=== PATIENT | female | born 1950 | race Caucasian/White ===

== ENCOUNTER 2016-04-21 12:25 | Inpatient (IN) | payer MEDICARE, OTHER ==
[~2016-04-21] VITALS: Ht 160 cm; Wt 54.3 kg
[2016-04-21 12:27] VITALS: BP 132/60; PULSE 56; RESP 17; TEMP 97.8; O2SAT 95
[2016-04-21 12:43] VITALS: BP 130/60; PULSE 56; RESP 24; O2SAT 97
[2016-04-21] MEDS ORDERED: SODIUM CHLOR 0.9% 1000 ML INJ 1,000 ML IV ONE ×2 (12:43→13:45)
[2016-04-21] MEDS ORDERED: SODIUM CHLORIDE 0.9% FLUSH 5 ML FLUSH IVF PRN (12:45)
[2016-04-21] MEDS ORDERED: ONDANSETRON HCL 4 MG/2 ML VIAL IVP ONE (12:45)
--- NOTE | 2016-04-21 12:49 | PD ---
HPI Chief Complaint: GI Complaint Time Seen by Provider: 12:45 Travel History International Travel<30 days: No Contact w/Intl Traveler<30days: No Traveled to known affect area: No History of Present Illness HPI Patient is a 65-year-old female presenting to emergency for evaluation of nausea , vomiting, diarrhea. Patient states her symptoms have been ongoing for the last 4 days. She reports a lower left abdominal pain that feels crampy. Patient reports that nothing tastes right, if she takes sips of water she starts to feel nauseated. She reports vomiting yellow emesis. Patient has had no documented fevers but reports chills and sweats. She denies any sick contacts. Her last colonoscopy was 2 years ago there were no abnormal findings per her report. PFSH Past Medical History Arthritis: Yes (rheumatoid) COPD: Yes Hypertension: Yes Psychiatric: Yes (PTSD) ?: Not Past Surgical History Hysterectomy: Yes Other Surgery: Yes (breast biopsy with titanium seeds one week ago.) Social History Alcohol Use: No Tobacco Use: Yes (electronic cigarettes) Substance Use: Yes (occasional marijuana) Allergies-Medications (Allergen,Severity, Reaction): Coded Allergies: Penicillin (Verified Allergy, Unknown, 04/21/16) Reported Meds & Prescriptions Reported Meds & Active Scripts Active Reported Tylenol Pm Extra Strength (Diphenhydramine-Acetaminophen) 25-500 Mg Tab 2 Tab PO HS Plaquenil (Hydroxychloroquine Sulfate) 200 Mg Tab 400 Mg PO DAILY Take with food Lisinopril 10 Mg Tab 10 Mg PO DAILY Mobic (Meloxicam) 15 Mg Tab 15 Mg PO DAILY Atenolol 50 Mg Tab 50 Mg PO HS Symbicort Inh (Budesonide/Formoterol Fumarate) 80-4.5 Mcg/Act Aero 2 Puff INH Q12HR Albuterol Neb (Albuterol Sulfate) 2.5 Mg/3 Ml Neb 2.5 Mg NEB Q4HR NEB PRN Claritin (Loratadine) 10 Mg Tab 10 Mg PO HS Xanax (Alprazolam) 0.5 Mg Tab 0.5 Mg PO BID PRN Melatonin 10 Mg Tab 10 Mg PO HS Review of Systems Except as stated in HPI: all other systems reviewed are Neg General / Constitutional: Positive: Chills, Other (sweats), No: Fever HENT: No: Headaches, Lightheadedness Cardiovascular: No: Chest Pain or Discomfort Respiratory: No: Cough, Shortness of Breath Gastrointestinal: Positive: Nausea, Vomiting, Diarrhea, Abdominal Pain Neurologic: Positive: Weakness, No: Dizziness, Syncope, Focal Abnormalities, Change in Mentation Physical Exam Narrative GENERAL: Well-developed, well-nourished, alert female. Resting comfortably in no acute distress. Friend at bedside. SKIN: Warm and dry. HEAD: Atraumatic. Normocephalic. EYES: Pupils equal and round. No scleral icterus. No injection or drainage. ENT: No nasal bleeding or discharge. Mucous membranes pink and moist. NECK: Trachea midline. No JVD. CARDIOVASCULAR: Regular rate and rhythm. No murmur appreciated. RESPIRATORY: No accessory muscle use. Clear to auscultation. Breath sounds equal bilaterally. GASTROINTESTINAL: Abdomen soft, tender to palpation left lower quadrant, nondistended. Hepatic and splenic margins not palpable. Positive bowel sounds, no rebound, no guarding. MUSCULOSKELETAL: No obvious deformities. No clubbing. No cyanosis. No edema. No CVAT bilaterally NEUROLOGICAL: Awake and alert. No obvious cranial nerve deficits. Motor grossly within normal limits. Normal speech. PSYCHIATRIC: Appropriate mood and affect; insight and judgment normal. Data Data Last Documented VS Vital Signs Date Time Temp Pulse Resp B/P Pulse Ox O2 Delivery O2 Flow Rate FiO2 04/21/16 15:09 62 24 143/62 98 Room Air 04/21/16 12:27 97.8 Orders Complete Blood Count With Diff (04/21/16 12:43) Comprehensive Metabolic Panel (04/21/16 12:43) Urinalysis - C+S If Indicated (04/21/16 12:43) Lipase (04/21/16 12:43) Iv Access Insert/Monitor (04/21/16 12:43) Ecg Monitoring (04/21/16 12:43) Oximetry (04/21/16 12:43) Ondansetron Inj (Zofran Inj) (04/21/16 12:45) Sodium Chlor 0.9% 1000 Ml Inj (Ns 1000 M (04/21/16 12:43) Sodium Chloride 0.9% Flush (Ns Flush) (04/21/16 12:45) Lactic Acid (04/21/16 12:43) Sodium Chlor 0.9% 1000 Ml Inj (Ns 1000 M (04/21/16 13:45) Ct Abd/Pel W/O Iv Contrast (04/21/16 ) Metronidazole 500 Mg Inj (Flagyl 500 Mg (04/21/16 15:00) Ciprofloxacin 400 Mg Premix (Cipro 400 M (04/21/16 15:00) Promethazine Inj (Phenergan Inj) (04/21/16 15:15) Alprazolam (Xanax) (04/21/16 15:30) Atenolol (Tenormin) (04/21/16 21:00) Budeson-Formot 80-4.5 Mcg Inh (Symbicort (04/21/16 21:00) Hydroxychloroquine (Plaquenil) (04/22/16 09:00) Admit Order (Ed Use Only) (04/21/16 15:20) Labs Laboratory Tests Test 04/21/16 12:55 White Blood Count 15.5 TH/MM3 Red Blood Count 4.21 MIL/MM3 Hemoglobin 12.4 GM/DL Hematocrit 36.5 % Mean Corpuscular Volume 86.9 FL Mean Corpuscular Hemoglobin 29.4 PG Mean Corpuscular Hemoglobin 33.9 % Concent Red Cell Distribution Width 13.6 % Platelet Count 248 TH/MM3 Mean Platelet Volume 9.9 FL Neutrophils (%) (Auto) 85.4 % Lymphocytes (%) (Auto) 6.8 % Monocytes (%) (Auto) 7.6 % Eosinophils (%) (Auto) 0.1 % Basophils (%) (Auto) 0.1 % Neutrophils # (Auto) 13.3 TH/MM3 Lymphocytes # (Auto) 1.1 TH/MM3 Monocytes # (Auto) 1.2 TH/MM3 Eosinophils # (Auto) 0.0 TH/MM3 Basophils # (Auto) 0.0 TH/MM3 CBC Comment DIFF FINAL Differential Comment Sodium Level 125 MEQ/L Potassium Level 4.5 MEQ/L Chloride Level 87 MEQ/L Carbon Dioxide Level 23.1 MEQ/L Anion Gap 15 MEQ/L Blood Urea Nitrogen 64 MG/DL Creatinine 2.60 MG/DL Estimat Glomerular Filtration 18 ML/MIN Rate Random Glucose 69 MG/DL Lactic Acid Level 1.3 mmol/L Calcium Level 8.2 MG/DL Total Bilirubin 0.4 MG/DL Aspartate Amino Transf 23 U/L (AST/SGOT) Alanine Aminotransferase 17 U/L (ALT/SGPT) Alkaline Phosphatase 67 U/L Total Protein 7.6 GM/DL Albumin 3.0 GM/DL Lipase 62 U/L MDM Medical Decision Making Medical Screen Exam Complete: Yes Emergency Medical Condition: Yes Interpretation(s) Last Impressions Abdomen/Pelvis CT 04/21/16 0000 Signed Impressions: Service Date/Time: Thursday, April 21, 2016 14:10 - CONCLUSION: Air-filled colon with ahaustral pattern and some scattered areas of colonic wall thickening likely colitis involving the distal descending and the distal transverse colons. There is low-grade inflammation around the colon and thickening of the paracolic peritoneal gutter. Diony Harp MD Laboratory Tests Test 04/21/16 12:55 White Blood Count 15.5 TH/MM3 Red Blood Count 4.21 MIL/MM3 Hemoglobin 12.4 GM/DL Hematocrit 36.5 % Mean Corpuscular Volume 86.9 FL Mean Corpuscular Hemoglobin 29.4 PG Mean Corpuscular Hemoglobin 33.9 % Concent Red Cell Distribution Width 13.6 % Platelet Count 248 TH/MM3 Mean Platelet Volume 9.9 FL Neutrophils (%) (Auto) 85.4 % Lymphocytes (%) (Auto) 6.8 % Monocytes (%) (Auto) 7.6 % Eosinophils (%) (Auto) 0.1 % Basophils (%) (Auto) 0.1 % Neutrophils # (Auto) 13.3 TH/MM3 Lymphocytes # (Auto) 1.1 TH/MM3 Monocytes # (Auto) 1.2 TH/MM3 Eosinophils # (Auto) 0.0 TH/MM3 Basophils # (Auto) 0.0 TH/MM3 CBC Comment DIFF FINAL Differential Comment Sodium Level 125 MEQ/L Potassium Level 4.5 MEQ/L Chloride Level 87 MEQ/L Carbon Dioxide Level 23.1 MEQ/L Anion Gap 15 MEQ/L Blood Urea Nitrogen 64 MG/DL Creatinine 2.60 MG/DL Estimat Glomerular Filtration 18 ML/MIN Rate Random Glucose 69 MG/DL Lactic Acid Level 1.3 mmol/L Calcium Level 8.2 MG/DL Total Bilirubin 0.4 MG/DL Aspartate Amino Transf 23 U/L (AST/SGOT) Alanine Aminotransferase 17 U/L (ALT/SGPT) Alkaline Phosphatase 67 U/L Total Protein 7.6 GM/DL Albumin 3.0 GM/DL Lipase 62 U/L Vital Signs Date Time Temp Pulse Resp B/P Pulse Ox O2 Delivery O2 Flow Rate FiO2 04/21/16 12:43 56 24 130/60 97 Room Air 04/21/16 12:27 97.8 56 17 132/60 95 Differential Diagnosis Diverticulitis versus colitis versus gastroenteritis versus obstruction versus viral syndrome versus other Narrative Course Patient is a 65-year-old female presenting to emergency department for evaluation abdominal pain, nausea, vomiting, diarrhea. She saw the Center stable, she is afebrile. Labs and imaging ordered and pending. Patient placed on telemetry monitoring, continuous pulse oximetry. IV access initiated. IV fluids and Zofran ordered. CT scan of the abdomen and pelvis shows colitis CBC with an elevated white count at 15.8 with left shift Chemistry with elevated BUN and creatinine, likely secondary to poor by mouth intake and vomiting. Sodium 125. Patient given 2 L of IV fluids Lipase is normal, lactic acid is normal [facility] paged for admission. Ciprofloxacin and metronidazole ordered. Dr. Curtis accepted admission. Admission orders placed. Patient is agreeable to plan. Diagnosis Primary Impression: Colitis Additional Impressions: Acute renal insufficiency Nausea & vomiting Qualified Code: R11.2 - Non-intractable vomiting with nausea, unspecified vomiting type Admitting Information Admitting Physician Requests: Admit Condition: Stable Lashae Hale Apr 21, 2016 12:49
[2016-04-21 13:19] LABS: AUTOMATED NEUTROPHIL # 13.3 TH/MM3 (1.8-7.7); BASOPHIL % 0.1 % (0.0-2.0); EOSINOPHIL % 0.1 % (0.0-4.0); HEMATOCRIT 36.5 % (35.0-46.0); HEMO FLAGS DIFF FINAL; LYMPH % 6.8 % (9.0-44.0); LYMPHOCYTE # 1.1 TH/MM3 (1.0-4.8); MEAN CELL VOLUME 86.9 FL (80.0-100.0); MEAN CORPUSCULAR HEMOGLOBIN 29.4 PG (27.0-34.0); MEAN CORPUSCULAR HGB CONC 33.9 % (32.0-36.0); MONO % 7.6 % (0.0-8.0); NEUT % 85.4 % (16.0-70.0); PLATELET COUNT 248 TH/MM3 (150-450); RED BLOOD COUNT 4.21 MIL/MM3 (4.00-5.30); RED CELL DISTRIBUTION WIDTH 13.6 % (11.6-17.2); WHITE BLOOD COUNT 15.5 TH/MM3 (4.0-11.0)
[2016-04-21 13:30] LABS: ANION GAP 15 MEQ/L (5-15); AST (GOT) 23 U/L (15-37); BICARBONATE 23.1 MEQ/L (21.0-32.0); BLOOD UREA NITROGEN 64 MG/DL (7-18); CHLORIDE 87 MEQ/L (98-107); GLOMERULAR FILTRATION RATE 18 ML/MIN (>89); POTASSIUM 4.5 MEQ/L (3.5-5.1); SODIUM (NA) 125 MEQ/L (136-145)
[2016-04-21 13:33] LABS: ALKALINE PHOSPHATASE 67 U/L (45-117); ALT (GPT) 17 U/L (10-53); TOTAL BILIRUBIN ADULT 0.4 MG/DL (0.2-1.0)
[2016-04-21] MEDS ORDERED: SYMB80AE INH (13:57)
[2016-04-21] MEDS ORDERED: ALPR.5 PO (13:57)
[2016-04-21] MEDS ORDERED: ALBU0.08 NEB (13:57)
[2016-04-21] MEDS ORDERED: DIPH1TAB36 PO (13:57)
[2016-04-21] MEDS ORDERED: PLAQ200T PO (13:57)
[2016-04-21] MEDS ORDERED: LISI10TA3 PO (13:57)
[2016-04-21] MEDS ORDERED: MOBI15TA PO (13:57)
[2016-04-21] MEDS ORDERED: ATEN50TA PO (13:57)
[2016-04-21] MEDS ORDERED: MELA1TAB27 PO (13:57)
[2016-04-21] MEDS ORDERED: LORA-361 PO (13:57)
--- NOTE | 2016-04-21 14:42 | RADRPT ---
EXAM DATE/TIME: 04/21/2016 14:10 [place] COMPARISON: No previous studies available for comparison. INDICATIONS : Nausea vomiting for one week,abdomen pain. ORAL CONTRAST: No oral contrast ingested. RADIATION DOSE: 9.96 CTDIvol (mGy) MEDICAL HISTORY : Hypertension. SURGICAL HISTORY : Hysterectomy. ENCOUNTER: Initial ACUITY: 1 week PAIN SCALE: 10/10 LOCATION: Abdomen TECHNIQUE: Volumetric scanning of the abdomen and pelvis was performed. Using automated exposure control and ad justment of the mA and/or kV according to patient size, radiation dose was kept as low as reasonably achievable to obtain optimal diagnostic quality images. FINDINGS: LOWER LUNGS: The visualized lower lungs are clear. LIVER: Homogeneous density without lesion. There is no dilation of the biliary tree. No calcified gallston es. Large calcification within the ruben hepatis could be a hepatic artery aneurysm measuring 9 mm of no clinical significance SPLEEN: Normal size without lesion. PANCREAS: Within normal limits. KIDNEYS: Normal in size and shape. There is no mass, stone, or hydronephrosis. ADRENAL GLANDS: Within normal limits. VASCULAR: There is no aortic aneurysm. BOWEL/MESENTERY: There are a number of areas and segments of colon which have a thick wall and a relatively ahaustral including the distal transverse and the descending colons concerning for colitis. Clip around the cec um may be related to appendectomy. ABDOMINAL WALL: Within normal limits. RETROPERITONEUM: There is no lymphadenopathy. BLADDER: No wall thickening or mass. REPRODUCTIVE: Within normal limits. INGUINAL: There is no lymphadenopathy or hernia. MUSCULOSKELETAL: Within normal limits for patient age. CONCLUSION: Air-filled colon with ahaustral pattern and some scattered areas of colonic wall thickening likely co litis involving the distal descending and the distal transverse colons. There is low-grade inflammat ion around the colon and thickening of the paracolic peritoneal gutter. Diony Harp MD on April 21, 2016 at 14:38 Board Certified Radiologist. This report was verified electronically.
[2016-04-21] MEDS ORDERED: metroNIDAZOLE 500 MG INJ 100 ML IV ONE (15:00)
[2016-04-21] MEDS ORDERED: CIPROFLOXACIN 400 MG PREMIX 200 ML IV ONE (15:00)
[2016-04-21 15:09] VITALS: BP 143/62; PULSE 62; RESP 24; O2SAT 98
[2016-04-21] MEDS ORDERED: PROMETHAZINE INJ 25 MG/ML VIAL IM ONE (15:15)
[2016-04-21 15:21] LABS: BACTERIA, URINE RARE /hpf; BLOOD, URINE SMALL (NEG); COMMENT (UR) CULT NOT INDICATED; CULTURE IF INDICATED CULT NOT INDICATED; GLUCOSE,URINE NEG (NEG); HYALINE CAST, URINE 1 /lpf (RARE); KETONE, URINE 10 mg/dL (NEG); NITRITE,URINE NEG (NEG); URINE COLOR YELLOW (YELLW/STRAW)
--- NOTE | 2016-04-21 15:27 | PD ---
Physical Exam Narrative GENERAL: Well-nourished, well-developed patient. HEAD: Normocephalic CARDIOVASCULAR: Regular rate and rhythm RESPIRATORY: no increased effort. No accessory muscle use. NEUROLOGICAL: Awake. Motor and sensory grossly within normal limits. Data Data Last Documented VS Vital Signs Date Time Temp Pulse Resp B/P Pulse Ox O2 Delivery O2 Flow Rate FiO2 04/21/16 15:09 62 24 143/62 98 Room Air 04/21/16 12:27 97.8 Orders Complete Blood Count With Diff (04/21/16 12:43) Comprehensive Metabolic Panel (04/21/16 12:43) Urinalysis - C+S If Indicated (04/21/16 12:43) Lipase (04/21/16 12:43) Iv Access Insert/Monitor (04/21/16 12:43) Ecg Monitoring (04/21/16 12:43) Oximetry (04/21/16 12:43) Ondansetron Inj (Zofran Inj) (04/21/16 12:45) Sodium Chlor 0.9% 1000 Ml Inj (Ns 1000 M (04/21/16 12:43) Sodium Chloride 0.9% Flush (Ns Flush) (04/21/16 12:45) Lactic Acid (04/21/16 12:43) Sodium Chlor 0.9% 1000 Ml Inj (Ns 1000 M (04/21/16 13:45) Ct Abd/Pel W/O Iv Contrast (04/21/16 ) Metronidazole 500 Mg Inj (Flagyl 500 Mg (04/21/16 15:00) Ciprofloxacin 400 Mg Premix (Cipro 400 M (04/21/16 15:00) Promethazine Inj (Phenergan Inj) (04/21/16 15:15) Alprazolam (Xanax) (04/21/16 15:30) Atenolol (Tenormin) (04/21/16 21:00) Budeson-Formot 80-4.5 Mcg Inh (Symbicort (04/21/16 21:00) Hydroxychloroquine (Plaquenil) (04/22/16 09:00) Admit Order (Ed Use Only) (04/21/16 15:20) Labs Laboratory Tests Test 04/21/16 04/21/16 12:55 15:05 White Blood Count 15.5 TH/MM3 Red Blood Count 4.21 MIL/MM3 Hemoglobin 12.4 GM/DL Hematocrit 36.5 % Mean Corpuscular Volume 86.9 FL Mean Corpuscular Hemoglobin 29.4 PG Mean Corpuscular Hemoglobin 33.9 % Concent Red Cell Distribution Width 13.6 % Platelet Count 248 TH/MM3 Mean Platelet Volume 9.9 FL Neutrophils (%) (Auto) 85.4 % Lymphocytes (%) (Auto) 6.8 % Monocytes (%) (Auto) 7.6 % Eosinophils (%) (Auto) 0.1 % Basophils (%) (Auto) 0.1 % Neutrophils # (Auto) 13.3 TH/MM3 Lymphocytes # (Auto) 1.1 TH/MM3 Monocytes # (Auto) 1.2 TH/MM3 Eosinophils # (Auto) 0.0 TH/MM3 Basophils # (Auto) 0.0 TH/MM3 CBC Comment DIFF FINAL Differential Comment Sodium Level 125 MEQ/L Potassium Level 4.5 MEQ/L Chloride Level 87 MEQ/L Carbon Dioxide Level 23.1 MEQ/L Anion Gap 15 MEQ/L Blood Urea Nitrogen 64 MG/DL Creatinine 2.60 MG/DL Estimat Glomerular Filtration 18 ML/MIN Rate Random Glucose 69 MG/DL Lactic Acid Level 1.3 mmol/L Calcium Level 8.2 MG/DL Total Bilirubin 0.4 MG/DL Aspartate Amino Transf 23 U/L (AST/SGOT) Alanine Aminotransferase 17 U/L (ALT/SGPT) Alkaline Phosphatase 67 U/L Total Protein 7.6 GM/DL Albumin 3.0 GM/DL Lipase 62 U/L Urine Color YELLOW Urine Turbidity CLEAR Urine pH 5.0 Urine Specific [place] 1.009 Urine Protein TRACE mg/dL Urine Glucose (UA) NEG mg/dL Urine Ketones 10 mg/dL Urine Occult Blood SMALL Urine Nitrite NEG Urine Bilirubin NEG Urine Urobilinogen LESS THAN 2.0 MG/DL Urine Leukocyte Esterase TRACE Urine RBC LESS THAN 1 /hpf Urine WBC 2 /hpf Urine Bacteria RARE /hpf Urine Hyaline Casts 1 /lpf Microscopic Urinalysis Comment CULT NOT INDICATED [facility] Supervised Visit with RITA: Yes Interpretation(s) CBC & BMP Diagram 04/21/16 12:55 Last 24 hours Impressions Abdomen/Pelvis CT 04/21/16 0000 Signed Impressions: Service Date/Time: Thursday, April 21, 2016 14:10 - CONCLUSION: Air-filled colon with ahaustral pattern and some scattered areas of colonic wall thickening likely colitis involving the distal descending and the distal transverse colons. There is low-grade inflammation around the colon and thickening of the paracolic peritoneal gutter. Diony Harp MD Narrative Course I, Dr. kamara, have reviewed the advance practice practitioner's documentation and am in agreement, met with the patient face to face, made the diagnosis, and the medical decision making was done by me. *My assessment and Findings: 65 y/o female presents with abdominal pain and vomiting and diarrhea. Workup shows acute renal failure and colitis. Will admit for IV fluid hydration and further care. Given Cipro and Flagyl Physician Communication Physician Communication [facility] agrees to admit Diagnosis Primary Impression: Colitis Additional Impressions: Nausea & vomiting Qualified Code: R11.2 - Non-intractable vomiting with nausea, unspecified vomiting type Acute renal insufficiency Hyponatremia Admitting Information Admitting Physician Requests: Admit Condition: Stable Angella Kamara MD Apr 21, 2016 15:27 Admitting Physician Requests: Admit Condition: Stable Angella Kamara MD Apr 21, 2016 15:27
[2016-04-21] MEDS ORDERED: ACETAMINOPHEN 325 MG TAB PO PRN (15:30)
[2016-04-21] MEDS ORDERED: ALPRAZolam 0.5 MG TAB PO PRN (15:30)
[2016-04-21] MEDS ORDERED: SODIUM CHLORIDE 0.9% FLUSH 5 ML FLUSH FLUSH PRN (15:30)
[2016-04-21] MEDS ORDERED: NALOXONE HCL 0.4 MG/ML AMP IV PRN (15:30)
[2016-04-21] MEDS ORDERED: DEXT 5%-NACL 0.9% 1000 ML INJ 1,000 ML IV SCH (16:00)
--- NOTE | 2016-04-21 16:02 | HHI.HP ---
HPI Service [facility] Non-Staff Admission Diagnosis colitis, acute renal insufficiency, nausea and vomiting Diagnoses: Chief Complaint: Nausea vomiting and diarrhea 4 days Travel History International Travel<30 Days: No Contact w/Intl Traveler <30 Da: No Traveled to Known Affected Are: No History of Present Illness This is a 65-year-old female patient with past medical history which includes osteoporosis, rheumatoid arthritis on Plaquenil, osteoarthritis, COPD, hypertension and recent breast biopsy. Patient presents to the emergency department today after she has had 5 days of intractable vomiting and diarrhea. Patient reports she has not been able to keep any food or liquids down for the past 4 days. Patient had a breast biopsy done last Wednesday with tumor markers placed. Patient reports the vomiting and diarrhea started simultaneously all of a sudden last . Patient reports there was a red tinge possible blood in the stool over the past few days. Patient reports the red tinge was not present in the stool today. Patient reports that she has left lower quadrant abdominal pain described as sharp and cramping in nature. Patient reports that attempting to eat or drink anything makes the vomiting worse feeling thing that is made the vomiting and diarrhea better is that she has not been eating and drinking. Patient reports that she has also been having diaphoresis with these symptoms. Patient denies shortness of breath chest pain. Review of Systems Except as stated in HPI: all other systems reviewed are Neg Past Family Social History Past Medical History osteoporosis, rheumatoid arthritis on Plaquel, osteoarthritis, COPD, hypertension and recent breast biopsy. Past Surgical History Bilateral breast biopsies, hysterectomy Reported Medications Tylenol Pm Extra Strength (Diphenhydramine-Acetaminophen) 25-500 Mg Tab 2 Tab PO HS Plaquenil (Hydroxychloroquine Sulfate) 200 Mg Tab 400 Mg PO DAILY Take with food Lisinopril 10 Mg Tab 10 Mg PO DAILY Mobic (Meloxicam) 15 Mg Tab 15 Mg PO DAILY Atenolol 50 Mg Tab 50 Mg PO HS Symbicort Inh (Budesonide/Formoterol Fumarate) 80-4.5 Mcg/Act Aero 2 Puff INH Q12HR Albuterol Neb (Albuterol Sulfate) 2.5 Mg/3 Ml Neb 2.5 Mg NEB Q4HR NEB PRN Claritin (Loratadine) 10 Mg Tab 10 Mg PO HS Xanax (Alprazolam) 0.5 Mg Tab 0.5 Mg PO BID PRN Melatonin 10 Mg Tab 10 Mg PO HS Allergies: Coded Allergies: Penicillin (Verified Allergy, Unknown, 04/21/16) Active Ordered Medications Current Medications Medications (Trade) Dose Ordered Sig/Tyrone Route Start Time Stop Time Status Last Admin IV Flush 2 ml 2 ml UNSCH PRN IVF 04/21/16 12:45 Metronidazole 100 ml @ 100 mls/hr ONCE ONCE IV 04/21/16 15:00 04/21/16 15:59 (Cipro 400 Mg Premix) 200 ml @ 200 mls/hr ONCE ONCE IV 04/21/16 15:00 04/21/16 15:59 04/21/16 15:19 (Xanax) 0.5 mg BID PRN PO 04/21/16 15:30 (Tenormin) 50 mg HS PO 04/21/16 21:00 (Symbicort 80-4.5 Mcg Inh) 2 puff Q12HR INH 04/21/16 21:00 (Plaquenil) 400 mg DAILY PO 04/22/16 09:00 Family History CAD runs in the family both mother and father Social History Patient reports she quit smoking cigarettes 4 years ago- now uses electronic cigarettes denies EtOH use Physical Exam Vital Signs Vital Signs Date Time Temp Pulse Resp B/P Pulse Ox O2 Delivery O2 Flow Rate FiO2 04/21/16 15:09 62 24 143/62 98 Room Air 04/21/16 12:43 56 24 130/60 97 Room Air 04/21/16 12:27 97.8 56 17 132/60 95 Physical Exam GENERAL: This is a 65-year-old female patient ill-appearing SKIN: Skin is pale and dry HEAD: Atraumatic. Normocephalic. No temporal or scalp tenderness. EYES: Extraocular motions intact. No scleral icterus. No injection or drainage. CARDIOVASCULAR: Regular rate and rhythm without murmurs, gallops, or rubs. RESPIRATORY: Clear to auscultation. Breath sounds equal bilaterally. No wheezes , rales, or rhonchi. GASTROINTESTINAL: Abdomen soft, nondistended, tender to palpation of left lower quadrant MUSCULOSKELETAL: Extremities without clubbing, cyanosis, or edema. No joint tenderness, effusion, or edema noted. No calf tenderness. Negative Homans sign bilaterally. NEUROLOGICAL: Awake and alert. No focal deficits appreciated Motor and sensory grossly within normal limits. 4 out of 5 muscle strength in all muscle groups. Normal speech. Laboratory Laboratory Tests Test 04/21/16 04/21/16 12:55 15:05 White Blood Count 15.5 Red Blood Count 4.21 Hemoglobin 12.4 Hematocrit 36.5 Mean Corpuscular Volume 86.9 Mean Corpuscular Hemoglobin 29.4 Mean Corpuscular Hemoglobin 33.9 Concent Red Cell Distribution Width 13.6 Platelet Count 248 Mean Platelet Volume 9.9 Neutrophils (%) (Auto) 85.4 Lymphocytes (%) (Auto) 6.8 Monocytes (%) (Auto) 7.6 Eosinophils (%) (Auto) 0.1 Basophils (%) (Auto) 0.1 Neutrophils # (Auto) 13.3 Lymphocytes # (Auto) 1.1 Monocytes # (Auto) 1.2 Eosinophils # (Auto) 0.0 Basophils # (Auto) 0.0 CBC Comment DIFF FINAL Differential Comment Sodium Level 125 Potassium Level 4.5 Chloride Level 87 Carbon Dioxide Level 23.1 Anion Gap 15 Blood Urea Nitrogen 64 Creatinine 2.60 Estimat Glomerular Filtration 18 Rate Random Glucose 69 Lactic Acid Level 1.3 Calcium Level 8.2 Total Bilirubin 0.4 Aspartate Amino Transf 23 (AST/SGOT) Alanine Aminotransferase 17 (ALT/SGPT) Alkaline Phosphatase 67 Total Protein 7.6 Albumin 3.0 Lipase 62 Urine Color YELLOW Urine Turbidity CLEAR Urine pH 5.0 Urine Specific [place] 1.009 Urine Protein TRACE Urine Glucose (UA) NEG Urine Ketones 10 Urine Occult Blood SMALL Urine Nitrite NEG Urine Bilirubin NEG Urine Urobilinogen LESS THAN 2.0 Urine Leukocyte Esterase TRACE Urine RBC LESS THAN 1 Urine WBC 2 Urine Bacteria RARE Urine Hyaline Casts 1 Microscopic Urinalysis Comment CULT NOT INDICATED Result Diagram: 04/21/16 1255 04/21/16 1255 Imaging Last Impressions Abdomen/Pelvis CT 04/21/16 0000 Signed Impressions: Service Date/Time: Thursday, April 21, 2016 14:10 - CONCLUSION: Air-filled colon with ahaustral pattern and some scattered areas of colonic wall thickening likely colitis involving the distal descending and the distal transverse colons. There is low-grade inflammation around the colon and thickening of the paracolic peritoneal gutter. Diony Harp MD Assessment and Plan Problem List: (1) Colitis ICD Code: K52.9 Status: Acute (2) Acute renal insufficiency ICD Code: N28.9 Status: Acute (3) Hyponatremia ICD Code: E87.1 Status: Acute (4) Nausea & vomiting ICD Code: R11.2 Status: Acute Assessment and Plan This is a 65-year-old female patient with past medical history which includes osteoporosis, rheumatoid arthritis on Plaquenil, osteoarthritis, COPD, hypertension and recent breast biopsy. Patient presents to the emergency department today after she has had 5 days of intractable vomiting and diarrhea. Patient reports she has not been able to keep any food or liquids down for the past 4 days. Patient had a breast biopsy done last Wednesday with tumor markers placed. Patient reports the vomiting and diarrhea started simultaneously all of a sudden last . Nausea vomiting diarrhea Leukocytosis 15.5 Colitis- bacterial versus viral. With history of rheumatoid arthritis concern for autoimmune colitis. Cipro IV decreased to 400 mg every 24 hours and Flagyl 500 mg every 8 hours IV in setting of renal disease Zofran as needed for nausea/vomiting Hemoccult stool Stool for C. difficile, ova/parasites and culture Clear liquid diet as tolerated GI consult requested. Acute kidney injury likely secondary to dehydration Hyponatremia Patient has received 2 L normal saline in emergency department will change to D5 normal saline at 75 cc/h Recheck BMP at 8 PM nurse to call if sodium level is above 130 Recheck BMP in a.m. Rheumatoid arthritis continue Plaquenil COPD chronic continue Symbicort DVT prophylaxis with SCDs Plan of care discussed with ER provider, nursing and patient Written by Carri Gutiérrez, acting as scribe for Dr. Navarrete on 04/21/16 at 15:59. Physician Certification 2 Midnight Certification Type: Admission for Inpatient Services Order for Inpatient Services The services are ordered in accordance with Medicare regulations or non- Medicare payer requirements, as applicable. In the case of services not specified as inpatient-only, they are appropriately provided as inpatient services in accordance with the 2-midnight benchmark. Estimated LOS (days): 4 days is the estimated time the patient will need to remain in the hospital, assuming treatment plan goals are met and no additional complications. Post-Hospital Plan: Home Notes: The documentation accurately reflects the work performed [id number] by me on at 15:59. Problem Qualifiers (1) Nausea & vomiting: Qualified Code: R11.2 - Non-intractable vomiting with nausea, unspecified vomiting type Carri Gutiérrez Apr 21, 2016 16:02 Hao Navarrete DO Apr 21, 2016 18:21
[2016-04-21] MEDS: ONDANSETRON HCL 4 MG/2 ML VIAL IVP PRN ×2 (16:13→19:58)
[2016-04-21 17:16] VITALS: BP 139/63; PULSE 59; RESP 16; O2SAT 96
[2016-04-21 18:13] VITALS: BP 137/62; PULSE 59; RESP 16; O2SAT 97
[2016-04-21 19:07] VITALS: BP 132/63; PULSE 56; RESP 18; O2SAT 96
[2016-04-21] MEDS: SODIUM CHLORIDE 0.9% FLUSH 5 ML FLUSH FLUSH SCH (20:27)
[2016-04-21] MEDS: BUDESONIDE-FORMOTEROL 80/4.5 MCG INHALER INH SCH (21:00)
[2016-04-21 21:20] LABS: BICARBONATE 21.9 MEQ/L (21.0-32.0)
[2016-04-21 21:35] LABS: POTASSIUM 4.6 MEQ/L (3.5-5.1)
[2016-04-21] MEDS: ATENOLOL 50 MG TAB PO SCH (21:42)
[2016-04-21 22:27] LABS: CALCIUM-PROTEIN CORRECTED 7.3 MG/DL (8.5-10.1)
[2016-04-21] MEDS ORDERED: CALCIUM GLUCONATE 10% 1 GM/10 ML VIAL IV PUSH ONE (23:00)
[2016-04-21] MEDS ORDERED: CALCIUM GLUCONATE INJ 1 GM in DEXTROSE 5% IN WATER 100ML INJ 100 ML IV ONE ×2 (23:30)
[2016-04-21] MEDS: metroNIDAZOLE 500 MG INJ 100 ML IV SCH (23:56)
[2016-04-21] MEDS: DEXT 5%-NACL 0.45% 1000 ML INJ 1,000 ML IV SCH (23:57)
[2016-04-22] VITALS: BP 137/68; PULSE 59; RESP 20; TEMP 97.2; O2SAT 96
[2016-04-22 05:41] LABS: AUTOMATED NEUTROPHIL # 5.7 TH/MM3 (1.8-7.7); BASOPHIL % 0.1 % (0.0-2.0); EOSINOPHIL % 0.1 % (0.0-4.0); HEMATOCRIT 28.5 % (35.0-46.0); HEMO FLAGS DIFF FINAL; LYMPH % 10.6 % (9.0-44.0); LYMPHOCYTE # 0.8 TH/MM3 (1.0-4.8); MEAN CORPUSCULAR HEMOGLOBIN 29.4 PG (27.0-34.0); MEAN CORPUSCULAR HGB CONC 33.8 % (32.0-36.0); MONO % 11.6 % (0.0-8.0); NEUT % 77.6 % (16.0-70.0); PLATELET COUNT 181 TH/MM3 (150-450); RED BLOOD COUNT 3.27 MIL/MM3 (4.00-5.30); RED CELL DISTRIBUTION WIDTH 13.5 % (11.6-17.2); WHITE BLOOD COUNT 7.3 TH/MM3 (4.0-11.0)
[2016-04-22 06:13] LABS: BICARBONATE 23.2 MEQ/L (21.0-32.0); POTASSIUM 3.7 MEQ/L (3.5-5.1)
[2016-04-22 08:00] VITALS: BP 161/69; PULSE 62; RESP 25; TEMP 97.4; O2SAT 93
[2016-04-22] MEDS: metroNIDAZOLE 500 MG INJ 100 ML IV SCH ×2 (08:58→16:25)
[2016-04-22] MEDS: HYDROXYCHLOROQUINE SULFATE 200 MG TAB PO SCH (08:59)
[2016-04-22] MEDS: BUDESONIDE-FORMOTEROL 80/4.5 MCG INHALER INH SCH ×2 (08:59→22:20)
[2016-04-22] MEDS: SODIUM CHLORIDE 0.9% FLUSH 5 ML FLUSH FLUSH SCH ×2 (08:59→21:00)
[2016-04-22] MEDS ORDERED: MORPHINE SULFATE 4 MG/ML INJ IV PUSH PRN (09:30)
--- NOTE | 2016-04-22 09:34 | HHI.PR ---
Subjective Remarks The patient said she was less nauseous. She said she was having a stabbing sensation in her left lower quadrant. She was wondering if she could have pain medication. She said she had some water and terrence stephen and was handling that okay. She said she would like to try some broth today. Has not had a bowel movement. Objective Vitals Vital Signs Date Time Temp Pulse Resp B/P Pulse Ox O2 Delivery O2 Flow Rate FiO2 04/22/16 00:00 97.2 59 20 137/68 96 04/21/16 19:07 56 18 132/63 96 Room Air 04/21/16 18:13 59 16 137/62 97 Room Air 04/21/16 17:16 59 16 139/63 96 Room Air 04/21/16 15:09 62 24 143/62 98 Room Air 04/21/16 12:43 56 24 130/60 97 Room Air 04/21/16 12:27 97.8 56 17 132/60 95 I/O 04/21/16 04/21/16 04/21/16 04/22/16 04/22/16 04/22/16 07:00 15:00 23:00 07:00 15:00 23:00 Intake Total 120 ml 745 ml Output Total 500 ml Balance -380 ml 745 ml Intake Oral 120 ml IV Total 745 ml Output Urine Total 500 ml Result Diagram: 04/22/16 0506 04/22/16 0506 Imaging Last Impressions Abdomen/Pelvis CT 04/21/16 0000 Signed Impressions: Service Date/Time: Thursday, April 21, 2016 14:10 - CONCLUSION: Air-filled colon with ahaustral pattern and some scattered areas of colonic wall thickening likely colitis involving the distal descending and the distal transverse colons. There is low-grade inflammation around the colon and thickening of the paracolic peritoneal gutter. Diony Harp MD Objective Remarks GENERAL: Resting comfortably. SKIN: Skin is pale and dry HEAD: Atraumatic. Normocephalic. No temporal or scalp tenderness. EYES: Extraocular motions intact. No scleral icterus. No injection or drainage. CARDIOVASCULAR: Regular rate and rhythm without murmurs, gallops, or rubs. RESPIRATORY: Clear to auscultation. Breath sounds equal bilaterally. No wheezes , rales, or rhonchi. GASTROINTESTINAL: Abdomen soft, nondistended, tender to palpation of left lower quadrant. MUSCULOSKELETAL: Extremities without clubbing, cyanosis, or edema. No joint tenderness, effusion, or edema noted. NEUROLOGICAL: Awake and alert. No focal deficits appreciated Motor and sensory grossly within normal limits. 5 out of 5 muscle strength in all muscle groups. Normal speech. PSYCH: Mood and affect appropriate. Medications and IVs Current Medications Medications (Trade) Dose Ordered Sig/Tyrone Route Start Time Stop Time Status Last Admin (Xanax) 0.5 mg BID PRN PO 04/21/16 15:30 (Tenormin) 50 mg HS PO 04/21/16 21:00 04/21/16 21:42 (Symbicort 80-4.5 Mcg Inh) 2 puff Q12HR INH 04/21/16 21:00 04/22/16 08:59 (Plaquenil) 400 mg DAILY PO 04/22/16 09:00 04/22/16 08:59 (NS Flush) 2 ml UNSCH PRN FLUSH 04/21/16 15:30 (NS Flush) 2 ml BID FLUSH 04/21/16 21:00 04/22/16 08:59 (Tylenol) 650 mg Q4H PRN PO 04/21/16 15:30 (Zofran Inj) 4 mg Q6H PRN IVP 04/21/16 15:30 04/21/16 19:58 Naloxone HCl 0.4 mg 0.4 mg UNSCH PRN IV 04/21/16 15:30 Metronidazole 100 ml @ 100 mls/hr Q8H IV 04/22/16 00:00 04/22/16 08:58 Dextrose/Sodium Chloride 1,000 ml @ 75 mls/hr [id number] IV 04/21/16 23:00 04/21/16 23:57 (Cipro 400 Mg Premix) 200 ml @ 200 mls/hr BID IV 04/22/16 09:10 A/P Problem List: (1) Colitis ICD Code: K52.9 Status: Acute (2) Acute renal insufficiency ICD Code: N28.9 Status: Acute (3) Hyponatremia ICD Code: E87.1 Status: Acute (4) Nausea & vomiting ICD Code: R11.2 Status: Acute Assessment and Plan This is a 65-year-old female patient with past medical history which includes osteoporosis, rheumatoid arthritis on Plaquenil, osteoarthritis, COPD, hypertension and recent breast biopsy. Patient presents to the emergency department today after she has had 5 days of intractable vomiting and diarrhea. Patient reports she has not been able to keep any food or liquids down for the past 4 days. Patient had a breast biopsy done last Wednesday with tumor markers placed. Patient reports the vomiting and diarrhea started simultaneously all of a sudden last . Nausea vomiting diarrhea/ Colitis Bacterial versus viral. With history of rheumatoid arthritis concern for autoimmune colitis. Leukocytosis resolved. - Cipro IV and Flagyl IV. - Zofran as needed for nausea/vomiting - Hemoccult stool. - Stool for C. difficile, ova/parasites and culture. - Clear liquid diet as tolerated. - GI consult requested. Acute kidney injury/ Hyponatremia Prerenal, improved with IVFs. - continue IVFs and follow BMP. Anemia Dilutional. - follow CBC. Rheumatoid arthritis Stable. - continue Plaquenil. COPD Stable. - continue Symbicort. DVT prophylaxis with SCDs Discharge Planning Awaiting clinical improvement. Problem Qualifiers (1) Nausea & vomiting: Qualified Code: R11.2 - Non-intractable vomiting with nausea, unspecified vomiting type Hao Navarrete DO Apr 22, 2016 09:34
[2016-04-22] MEDS: ONDANSETRON HCL 4 MG/2 ML VIAL IVP PRN ×2 (11:22→22:17)
[2016-04-22] MEDS: CIPROFLOXACIN 400 MG PREMIX 200 ML IV SCH ×2 (11:23→22:16)
[2016-04-22 12:00] VITALS: BP 133/68; PULSE 59; RESP 17; TEMP 97.6; O2SAT 96
[2016-04-22] MEDS: DEXT 5%-NACL 0.45% 1000 ML INJ 1,000 ML IV SCH (12:20)
[2016-04-22] MEDS ORDERED: CIPROFLOXACIN 400 MG PREMIX 200 ML IV SCH (15:00)
[2016-04-22 16:00] VITALS: BP 132/59; PULSE 59; RESP 16; TEMP 95.4; O2SAT 94
[2016-04-22] MEDS: ATENOLOL 50 MG TAB PO SCH (22:16)
[2016-04-23] VITALS: BP 134/58; PULSE 66; RESP 18; TEMP 97.6; O2SAT 94
[2016-04-23] MEDS: metroNIDAZOLE 500 MG INJ 100 ML IV SCH ×3 (00:20→15:46)
[2016-04-23] MEDS: DEXT 5%-NACL 0.45% 1000 ML INJ 1,000 ML IV SCH (00:20)
[2016-04-23 04:00] VITALS: BP 151/67; PULSE 60; RESP 17; TEMP 96.7; O2SAT 94
[2016-04-23] MEDS: ONDANSETRON HCL 4 MG/2 ML VIAL IVP PRN (04:52)
[2016-04-23 06:39] LABS: HEMATOCRIT 29.8 % (35.0-46.0); MEAN CELL VOLUME 87.9 FL (80.0-100.0); MEAN CORPUSCULAR HEMOGLOBIN 30.1 PG (27.0-34.0); MEAN CORPUSCULAR HGB CONC 34.3 % (32.0-36.0); PLATELET COUNT 186 TH/MM3 (150-450); RED CELL DISTRIBUTION WIDTH 13.8 % (11.6-17.2); REVIEW FLAG FINAL; WHITE BLOOD COUNT 6.3 TH/MM3 (4.0-11.0)
[2016-04-23 06:51] LABS: BICARBONATE 25.8 MEQ/L (21.0-32.0); MAGNESIUM 1.7 MG/DL (1.5-2.5); POTASSIUM 3.3 MEQ/L (3.5-5.1)
[2016-04-23 08:00] VITALS: BP 166/97; PULSE 52; RESP 20; TEMP 97.3; O2SAT 95
[2016-04-23] MEDS: SODIUM CHLORIDE 0.9% FLUSH 5 ML FLUSH FLUSH SCH ×2 (08:03→22:27)
[2016-04-23] MEDS: CIPROFLOXACIN 400 MG PREMIX 200 ML IV SCH (08:19)
[2016-04-23] MEDS: HYDROXYCHLOROQUINE SULFATE 200 MG TAB PO SCH (08:20)
[2016-04-23] MEDS: BUDESONIDE-FORMOTEROL 80/4.5 MCG INHALER INH SCH ×2 (08:20→22:27)
[2016-04-23] MEDS ORDERED: POTASSIUM CHLORIDE 25 MEQ EFFERVESCENT TAB PO ONE (09:00)
[2016-04-23 12:00] VITALS: BP 184/73; PULSE 62; RESP 20; TEMP 97.5; O2SAT 96
[2016-04-23 12:31] LABS: C. DIFF EPI 027 PRESUMPTIVE NEGATIVE (NEGATIVE); C. DIFF TOXIN PCR NEGATIVE (NEGATIVE)
[2016-04-23] MEDS ORDERED: POTASSIUM CHLORIDE 20 MEQ CONTROLLED RELEASE TAB PO ONE (13:00)
--- NOTE | 2016-04-23 13:11 | HHI.PR ---
Subjective Remarks The patient was resting comfortably in bed. Her family was at the bedside. She said she was tolerating her clear liquid diet. She wanted more regular food. She says her abdominal pain is improved. She did complain of a headache. She said she has a history of migraines. Discussed with nursing. Objective Vitals Vital Signs Date Time Temp Pulse Resp B/P Pulse Ox O2 Delivery O2 Flow Rate FiO2 04/23/16 08:00 97.3 52 20 166/97 95 04/23/16 04:00 96.7 60 17 151/67 94 04/23/16 00:00 97.6 66 18 134/58 94 04/22/16 16:00 95.4 59 16 132/59 94 I/O 04/22/16 04/22/16 04/22/16 04/23/16 04/23/16 04/23/16 07:00 15:00 23:00 07:00 15:00 23:00 Intake Total 120 ml 1675 ml 375 ml 1051 ml 120 ml Output Total 500 ml 900 ml Balance -380 ml 775 ml 375 ml 1051 ml 120 ml Intake Oral 120 ml 930 ml 480 ml 120 ml IV Total 745 ml 375 ml 571 ml Output Urine Total 500 ml 900 ml # Voids 1 # Bowel Movements 0 Result Diagram: 04/23/16 0442 04/23/16 0442 Imaging Last Impressions Abdomen/Pelvis CT 04/21/16 0000 Signed Impressions: Service Date/Time: Thursday, April 21, 2016 14:10 - CONCLUSION: Air-filled colon with ahaustral pattern and some scattered areas of colonic wall thickening likely colitis involving the distal descending and the distal transverse colons. There is low-grade inflammation around the colon and thickening of the paracolic peritoneal gutter. Diony Harp MD Objective Remarks GENERAL: Resting comfortably. SKIN: Skin is pale and dry HEAD: Atraumatic. Normocephalic. No temporal or scalp tenderness. EYES: Extraocular motions intact. No scleral icterus. No injection or drainage. CARDIOVASCULAR: Regular rate and rhythm without murmurs, gallops, or rubs. RESPIRATORY: Clear to auscultation. Breath sounds equal bilaterally. No wheezes , rales, or rhonchi. GASTROINTESTINAL: Abdomen soft, nondistended, mildly tender to palpation. MUSCULOSKELETAL: Extremities without clubbing, cyanosis, or edema. No joint tenderness, effusion, or edema noted. NEUROLOGICAL: Awake and alert. No focal deficits appreciated Motor and sensory grossly within normal limits. 5 out of 5 muscle strength in all muscle groups. Normal speech. PSYCH: Mood and affect appropriate. Medications and IVs Current Medications Medications (Trade) Dose Ordered Sig/Tyrone Route Start Time Stop Time Status Last Admin (Xanax) 0.5 mg BID PRN PO 04/21/16 15:30 (Tenormin) 50 mg HS PO 04/21/16 21:00 04/22/16 22:16 (Symbicort 80-4.5 Mcg Inh) 2 puff Q12HR INH 04/21/16 21:00 04/23/16 08:20 (Plaquenil) 400 mg DAILY PO 04/22/16 09:00 04/23/16 08:20 (NS Flush) 2 ml UNSCH PRN FLUSH 04/21/16 15:30 (NS Flush) 2 ml BID FLUSH 04/21/16 21:00 04/22/16 08:59 (Tylenol) 650 mg Q4H PRN PO 04/21/16 15:30 (Zofran Inj) 4 mg Q6H PRN IVP 04/21/16 15:30 04/23/16 04:52 Naloxone HCl 0.4 mg 0.4 mg UNSCH PRN IV 04/21/16 15:30 Metronidazole 100 ml @ 100 mls/hr Q8H IV 04/22/16 00:00 04/23/16 08:19 Dextrose/Sodium Chloride 1,000 ml @ 75 mls/hr [id number] IV 04/21/16 23:00 04/23/16 00:20 (Cipro 400 Mg Premix) 200 ml @ 200 mls/hr BID IV 04/22/16 09:10 04/23/16 08:19 (Roxicodone) 5 mg Q4H PRN PO 04/22/16 09:30 04/22/16 22:17 (Roxicodone) 10 mg Q4H PRN PO 04/22/16 09:30 (Morphine Inj) 4 mg Q3H PRN IV PUSH 04/22/16 09:30 (KCl) 40 meq ONCE ONCE PO 04/23/16 13:00 04/23/16 13:01 UNV (Prinivil) 10 mg DAILY PO 04/23/16 13:00 UNV (Vasotec Inj) 1.25 mg Q6H PRN IV PUSH 04/23/16 13:15 UNV A/P Problem List: (1) Colitis ICD Code: K52.9 Status: Acute (2) Acute renal insufficiency ICD Code: N28.9 Status: Acute (3) Hyponatremia ICD Code: E87.1 Status: Acute (4) Nausea & vomiting ICD Code: R11.2 Status: Acute Assessment and Plan This is a 65-year-old female patient with past medical history which includes osteoporosis, rheumatoid arthritis on Plaquenil, osteoarthritis, COPD, hypertension and recent breast biopsy. Patient presents to the emergency department today after she has had 5 days of intractable vomiting and diarrhea. Patient reports she has not been able to keep any food or liquids down for the past 4 days. Patient had a breast biopsy done last Wednesday with tumor markers placed. Patient reports the vomiting and diarrhea started simultaneously all of a sudden last . Nausea vomiting diarrhea/ Colitis Bacterial versus viral. With history of rheumatoid arthritis concern for autoimmune colitis. Leukocytosis resolved. C diff negative. - continue Cipro IV and Flagyl IV. - Zofran as needed for nausea/vomiting - Hemoccult stool requested. - Stool cultures pending. - advance to low residue diet. - GI consult pending. Acute kidney injury/ Hyponatremia/ Hypokalemia S/t decreased PO intake. Resolved with IVFs. - d/c IVFs and encourage PO intake. - KCl PO and follow BMP. Anemia Dilutional. Stable 04/23. - follow CBC as needed. Rheumatoid arthritis Stable. - continue Plaquenil. COPD Stable. - continue Symbicort. DVT prophylaxis with SCDs Discharge Planning Awaiting clinical improvement. Problem Qualifiers (1) Nausea & vomiting: Qualified Code: R11.2 - Non-intractable vomiting with nausea, unspecified vomiting type Hao Navarrete DO Apr 23, 2016 13:11
[2016-04-23] MEDS ORDERED: ENALAPRILAT 1.25 MG/ML VIAL IV PUSH PRN (13:15)
[2016-04-23] MEDS ORDERED: ACETAMIN 325 MG/BUTALBITAL 50 MG/CAFFEINE 40 MG TAB PO ONE (13:15)
[2016-04-23] MEDS: LISINOPRIL 10 MG TAB PO SCH (13:33)
--- NOTE | 2016-04-23 16:24 | PD.CONS ---
HPI History of Present Illness This is a 65 year old female with a hx of who came to the emergency room for one week history of nausea and vomiting, and diarrhea. She reports that last Wednesday night, she had spaghetti and meatballs with store but meatballs and Ragu sauce. Shortly after, she had the sudden onset of lower abdominal cramping with nausea, vomiting, and diarrhea. She reports that several other people ate the same meal but did not become ill. She reports that for the past week she's been having ongoing issues. She has not had any hematemesis. Her diarrhea consists of 3 loose stools per day with no obvious blood or mucus. She denies any fevers although she has had some intermittent chills. She has lost about 10 pounds unintentionally over the past year. Her symptoms are aggravated by any by mouth intake. There are no alleviating factors. She denies any sick contacts, recent antibiotic use, travel, camping, or other suspicious food. Abdomen/Pelvis CT (04/21/16)-----> Air-filled colon with ahaustral pattern and some scattered areas of colonic wall thickening likely colitis involving the distal descending and the distal transverse colons. There is low-grade inflammation around the colon and thickening of the paracolic peritoneal gutter. Stool studies came back positive for Giardia antigen. She gets a routine colonoscopy every 5 years and reports that she last had this 2 years ago. She denies any history of colon polyps and states the last and she had her colonoscopy she was told that she had one small hemorrhoid. (Shirley Roblero) PFSH Past Medical History Osteoporosis Rheumatoid arthritis on Plaquel Osteoarthritis COPD Hypertension Past Surgical History Bilateral breast biopsies Hysterectomy Colonoscopy (Shirley Roblero) Coded Allergies: Penicillin (Verified Allergy, Unknown, 04/21/16) Medications Allergies Coded Allergies Type Severity Reaction Last Updated Verified Penicillin Allergy Unknown 04/21/16 Yes Active Scripts Medications Dose Route/Sig Days Date Category Dose Instructions Tylenol Pm Extra Strength (Diphenhydramine-Acetaminophen) 25-500 Mg Tab 2 Tab PO HS 04/21/16 Reported Plaquenil (Hydroxychloroquine Sulfate) 200 Mg Tab 400 Mg PO DAILY 04/21/16 Reported Take with food Lisinopril 10 Mg Tab 10 Mg PO DAILY 04/21/16 Reported Mobic (Meloxicam) 15 Mg Tab 15 Mg PO DAILY 04/21/16 Reported Atenolol 50 Mg Tab 50 Mg PO HS 04/21/16 Reported Symbicort Inh (Budesonide/Formoterol Fumarate) 80-4.5 Mcg/Act Aero 2 Puff INH Q12HR 04/21/16 Reported Albuterol Neb (Albuterol Sulfate) 2.5 Mg/3 Ml Neb 2.5 Mg NEB Q4HR NEB PRN 04/21/16 Reported Claritin (Loratadine) 10 Mg Tab 10 Mg PO HS 04/21/16 Reported Xanax (Alprazolam) 0.5 Mg Tab 0.5 Mg PO BID PRN 04/21/16 Reported Melatonin 10 Mg Tab 10 Mg PO HS 04/21/16 Reported Family History CAD runs in the family both mother and father. Multiple family members with breast cancer- mother from, 2 maternal aunts, 2 paternal aunts. Father had prostate cancer. Social History Patient reports she quit smoking cigarettes 4 years ago- now uses electronic cigarettes denies EtOH use (Shirley Roblero) Review of Systems Constitutional: COMPLAINS OF: Fatigue, Weight loss, Chills, Change in appetite , DENIES: Fever Respiratory: DENIES: Cough Cardiovascular: DENIES: Chest pain Gastrointestinal: COMPLAINS OF: Abdominal pain, Diarrhea, Nausea, Vomiting, Anorexia, DENIES: Black stools, Bloody stools, Constipation, Heartburn, Hematemesis Musculoskeletal: COMPLAINS OF: Joint pain Integumentary: DENIES: Abnormal pigmentation, Rash Neurologic: DENIES: Headache Psychiatric: DENIES: Confusion (Shirley Roblero) GI Exam Vitals I&O Vital Signs Date Time Temp Pulse Resp B/P Pulse Ox O2 Delivery O2 Flow Rate FiO2 04/23/16 12:00 97.5 62 20 184/73 96 04/23/16 08:00 97.3 52 20 166/97 95 04/23/16 04:00 96.7 60 17 151/67 94 04/23/16 00:00 97.6 66 18 134/58 94 I/O 04/22/16 04/22/16 04/22/16 04/23/16 04/23/16 04/23/16 07:00 15:00 23:00 07:00 15:00 23:00 Intake Total 120 ml 1675 ml 375 ml 1051 ml 600 ml Output Total 500 ml 900 ml 800 ml Balance -380 ml 775 ml 375 ml 1051 ml -200 ml Intake Oral 120 ml 930 ml 480 ml 600 ml IV Total 745 ml 375 ml 571 ml Output Urine Total 500 ml 900 ml 800 ml # Voids 1 # Bowel Movements 0 2 Imaging Last Impressions Abdomen/Pelvis CT 04/21/16 0000 Signed Impressions: Service Date/Time: Thursday, April 21, 2016 14:10 - CONCLUSION: Air-filled colon with ahaustral pattern and some scattered areas of colonic wall thickening likely colitis involving the distal descending and the distal transverse colons. There is low-grade inflammation around the colon and thickening of the paracolic peritoneal gutter. Diony Harp MD Laboratory Test 04/23/16 04/23/16 04:42 06:50 White Blood Count 6.3 TH/MM3 Red Blood Count 3.40 MIL/MM3 Hemoglobin 10.2 GM/DL Hematocrit 29.8 % Mean Corpuscular Volume 87.9 FL Mean Corpuscular Hemoglobin 30.1 PG Mean Corpuscular Hemoglobin 34.3 % Concent Red Cell Distribution Width 13.8 % Platelet Count 186 TH/MM3 Mean Platelet Volume 9.4 FL Sodium Level 135 MEQ/L Potassium Level 3.3 MEQ/L Chloride Level 100 MEQ/L Carbon Dioxide Level 25.8 MEQ/L Anion Gap 9 MEQ/L Blood Urea Nitrogen 8 MG/DL Creatinine 0.64 MG/DL Estimat Glomerular Filtration 93 ML/MIN Rate Random Glucose 119 MG/DL Calcium Level 8.1 MG/DL Magnesium Level 1.7 MG/DL Stool C. difficile Toxin (PCR) NEGATIVE Stl C. difficile Toxin PRESUMPTIVE Epiderm 027 NEGATIVE Date/Time Procedure Status Source Growth 04/23/16 06:50 Stool Occult Blood (JARON) - Final Complete Stool Stool HEMOCCULT POSITIVE 04/23/16 06:50 Cryptosporidium Exam - Final Complete Stool Stool NEGATIVE - NO CRYPTOSPORIDIUM ANTIGEN... 04/23/16 06:50 Giardia Antigen (JARON) - Final Complete Positive For Giardia Antigen Physical Examination HEENT: Normocephalic; atraumatic; no jaundice. Throat is clear. NECK: Neck is supple, no JVD, no lymphadenopathy. CHEST: CTA CARDIAC: RRR ABDOMEN: Soft, nondistended, nontender; no hepatosplenomegaly; bowel sounds are present in all four quadrants. EXTREMITIES: No clubbing, cyanosis, or edema. SKIN: Normal; no rash; no jaundice. C[employer]ILE[employer] CR[employer] OPERATOR: No focal deficits; alert and oriented times three. (Shirley Roblero) Assessment and Plan Plan ASSESSMENT: - Acute infectious colitis secondary to giardia. No risk factors noted. Symptoms started 1 week ago and she has had persistent N/V/D, Abdominal cramping. Improved today. WBC from 15.5 on admission to 6.3. Flagyl. Last colonoscopy 2 years ago. Does have hx of RA, but stool came back positive for giardia ag. She is on Flagyl. - N/V/D secondary to above. Improved. Flagyl. PPI. Zofran prn - Abdominal cramping, improved - Leukocytosis, improved with flagyl. - Anemia. 10.2/29.8. PPI - EDGARD, Creat. 0.64. - RA, COPD, HTN, recent breast biopsy per primary PLAN: - JUNI - D/C Cipro - Change Flagyl to 250mg po x 7 days - Protonix 40mg po daily - Monitor labs - Supportive care - Further recommendations to follow based on results of above - Pt seen and examined by Dr. Gilliam and myself and this note is written on his behalf (Shirley Roblero) Physician Comments Patient seen and examined Agree with above Continue with current supportive care Monitor labs Flagyl 250 mg 3 times a day for 7 days (Checo Gilliam MD) Shirley Roblero Apr 23, 2016 16:23 Checo Gilliam MD Apr 23, 2016 21:38
[2016-04-23] MEDS: PANTOPRAZOLE SODIUM 40 MG VIAL IV PUSH SCH (17:15)
[2016-04-23 18:00] VITALS: BP 179/77; PULSE 62; RESP 19; TEMP 97.9; O2SAT 96
[2016-04-23 20:00] VITALS: BP 165/59; PULSE 60; RESP 20; TEMP 96.7; O2SAT 96
[2016-04-23] MEDS: ATENOLOL 50 MG TAB PO SCH (22:23)
[2016-04-23] MEDS: metroNIDAZOLE 250 MG TAB PO SCH (22:23)
[2016-04-24] VITALS: BP 171/79; PULSE 63; RESP 20; TEMP 98.1; O2SAT 94
[2016-04-24 04:00] VITALS: BP 174/81; PULSE 51
[2016-04-24] MEDS: metroNIDAZOLE 250 MG TAB PO SCH ×3 (04:26→22:00)
[2016-04-24] MEDS: LISINOPRIL 10 MG TAB PO SCH (07:45)
[2016-04-24] MEDS: HYDROXYCHLOROQUINE SULFATE 200 MG TAB PO SCH (07:45)
[2016-04-24] MEDS: SODIUM CHLORIDE 0.9% FLUSH 5 ML FLUSH FLUSH SCH ×2 (07:45→22:02)
[2016-04-24] MEDS: BUDESONIDE-FORMOTEROL 80/4.5 MCG INHALER INH SCH ×2 (07:46→22:02)
[2016-04-24 08:00] VITALS: BP 182/84; PULSE 63; RESP 16; TEMP 97.4; O2SAT 94
[2016-04-24] MEDS: LISINOPRIL 20 MG TAB PO SCH (08:47)
[2016-04-24 12:00] VITALS: BP 169/70; PULSE 63; RESP 18; TEMP 97.5; O2SAT 96
[2016-04-24] MEDS ORDERED: METR250 PO (12:11)
[2016-04-24] MEDS ORDERED: PANT40TA3 PO (12:11)
[2016-04-24] MEDS ORDERED: LISI-515 PO (12:11)
--- NOTE | 2016-04-24 12:12 | HHI.DCPOC ---
Discharge Care Plan Diagnosis: (1) Nausea & vomiting (2) Hyponatremia (3) Acute renal insufficiency (4) Giardial colitis Goals to Promote Your Health * To prevent worsening of your condition and complications * To maintain your health at the optimal level Directions to Meet Your Goals Take your medications as prescribed Follow your dietary instruction Follow activity as directed Keep your appointments as scheduled Take your immunizations and boosters as scheduled If your symptoms worsen call your PCP, if no PCP go to Urgent Care Center or Emergency Room Smoking is Dangerous to Your Health. Avoid second hand smoke Call the 24-hour hour crisis hotline for domestic abuse at Hao Navarrete DO Apr 24, 2016 12:12
--- NOTE | 2016-04-24 12:19 | HHI.DS ---
Discharge Summary Admission Date Apr 21, 2016 at 15:22 Discharge Date: Apr 24, 2016 Admitting Diagnosis colitis, acute renal insufficiency, nausea and vomiting (1) Colitis ICD Code: K52.9 (2) Acute renal insufficiency ICD Code: N28.9 (3) Hyponatremia ICD Code: E87.1 (4) Nausea & vomiting ICD Code: R11.2 (5) Giardial colitis ICD Code: A07.1 Diagnosis: Principal Procedures None Brief History - From Admission This is a 65-year-old female patient with past medical history which includes osteoporosis, rheumatoid arthritis on Plaquenil, osteoarthritis, COPD, hypertension and recent breast biopsy. Patient presents to the emergency department today after she has had 5 days of intractable vomiting and diarrhea. Patient reports she has not been able to keep any food or liquids down for the past 4 days. Patient had a breast biopsy done last Wednesday with tumor markers placed. Patient reports the vomiting and diarrhea started simultaneously all of a sudden last . Patient reports there was a red tinge possible blood in the stool over the past few days. Patient reports the red tinge was not present in the stool today. Patient reports that she has left lower quadrant abdominal pain described as sharp and cramping in nature. Patient reports that attempting to eat or drink anything makes the vomiting worse feeling thing that is made the vomiting and diarrhea better is that she has not been eating and drinking. Patient reports that she has also been having diaphoresis with these symptoms. Patient denies shortness of breath chest pain. CBC/BMP: 04/23/16 0442 04/23/16 0442 Significant Findings Laboratory Tests Test 04/21/16 04/21/16 04/21/16 04/22/16 12:55 15:05 20:10 05:06 White Blood Count 15.5 TH/MM3 (4.0-11.0) Neutrophils (%) (Auto) 85.4 % 77.6 % (16.0-70.0) (16.0-70.0) Lymphocytes (%) (Auto) 6.8 % (9.0-44.0) Neutrophils # (Auto) 13.3 TH/MM3 (1.8-7.7) Monocytes # (Auto) 1.2 TH/MM3 (0-0.9) Sodium Level 125 MEQ/L 131 MEQ/L 131 MEQ/L (136-145) (136-145) (136-145) Chloride Level 87 MEQ/L (98-107) Blood Urea Nitrogen 64 MG/DL (7-18) 45 MG/DL (7-18) 28 MG/DL (7-18) Creatinine 2.60 MG/DL 1.53 MG/DL 1.02 MG/DL (0.50-1.00) (0.50-1.00) (0.50-1.00) Estimat Glomerular Filtration 18 ML/MIN (>89) 34 ML/MIN (>89) 54 ML/MIN (>89) Rate Random Glucose 69 MG/DL 121 MG/DL 115 MG/DL (74-106) (74-106) (74-106) Calcium Level 8.2 MG/DL 6.6 MG/DL 7.6 MG/DL (8.5-10.1) (8.5-10.1) (8.5-10.1) Albumin 3.0 GM/DL (3.4-5.0) Lipase 62 U/L (73-393) Urine Ketones 10 mg/dL (NEG) Urine Occult Blood SMALL (NEG) Urine Leukocyte Esterase TRACE (NEG) Urine Bacteria RARE /hpf (NONE) Protein Corrected Calcium 7.3 MG/DL (8.5-10.1) Total Protein 5.7 GM/DL (6.4-8.2) Red Blood Count 3.27 MIL/MM3 (4.00-5.30) Hemoglobin 9.6 GM/DL (11.6-15.3) Hematocrit 28.5 % (35.0-46.0) Monocytes (%) (Auto) 11.6 % (0.0-8.0) Lymphocytes # (Auto) 0.8 TH/MM3 (1.0-4.8) Test 04/23/16 04:42 Red Blood Count 3.40 MIL/MM3 (4.00-5.30) Hemoglobin 10.2 GM/DL (11.6-15.3) Hematocrit 29.8 % (35.0-46.0) Sodium Level 135 MEQ/L (136-145) Potassium Level 3.3 MEQ/L (3.5-5.1) Random Glucose 119 MG/DL (74-106) Calcium Level 8.1 MG/DL (8.5-10.1) Imaging Last Impressions Abdomen/Pelvis CT 04/21/16 0000 Signed Impressions: Service Date/Time: Thursday, April 21, 2016 14:10 - CONCLUSION: Air-filled colon with ahaustral pattern and some scattered areas of colonic wall thickening likely colitis involving the distal descending and the distal transverse colons. There is low-grade inflammation around the colon and thickening of the paracolic peritoneal gutter. Diony Harp MD PE at Discharge GENERAL: Resting comfortably. SKIN: Skin is pale and dry HEAD: Atraumatic. Normocephalic. No temporal or scalp tenderness. EYES: Extraocular motions intact. No scleral icterus. No injection or drainage. CARDIOVASCULAR: Regular rate and rhythm without murmurs, gallops, or rubs. RESPIRATORY: Clear to auscultation. Breath sounds equal bilaterally. No wheezes , rales, or rhonchi. GASTROINTESTINAL: Abdomen soft, nondistended, nontender to palpation. MUSCULOSKELETAL: Extremities without clubbing, cyanosis, or edema. No joint tenderness, effusion, or edema noted. NEUROLOGICAL: Awake and alert. No focal deficits appreciated Motor and sensory grossly within normal limits. 5 out of 5 muscle strength in all muscle groups. Normal speech. PSYCH: Mood and affect appropriate. Pt update on day of discharge The patient says her bowel movements are more formed. She says her abdominal pain better. She wants to go home. She does mention that she saw red in her stool a few days ago. Discussed with nursing. Hospital Course Nausea vomiting diarrhea/ Colitis CT of the abdomen showed: Air-filled colon with ahaustral pattern and some scattered areas of colonic wall thickening likely colitis involving the distal descending and the distal transverse colons; There is low-grade inflammation around the colon and thickening of the paracolic peritoneal gutter. C diff negative. She was started on Cipro IV and Flagyl IV. She received Zofran as needed for nausea/vomiting. GI was consulted. Stool cultures came back positive for Giardia. The pt will complete a course of Flagyl. Her symptoms improved and her diet was advanced. GIB The pt had a positive Hemoccult. Her hemoglobin was stable. The pt did not want to pursue further GI work-up in the hospital and preferred to follow-up with GI in the clinic. She will continue omeprazole. We recommended that she hold her Mobic. She will continue treatment for colitis as above and will follow up with GI. Acute kidney injury/ Hyponatremia/ Hypokalemia/ Hypophosphatemia/ Hypomagnesemia Renal failure resolved with IVFs. The pt received electrolyte supplementation and will be discharged on KCl, K-Phos and magnesium oxide. Pt Condition on Discharge: Good Discharge Disposition: Discharge Home Discharge Time: > 30 minutes Discharge Instructions DIET: Follow Instructions for: Low Residue Diet Activities you can perform: Weight Bearing as Ren Follow up Referrals: Gastroenterology - 1 Week with Checo Gilliam MD PCP Follow-up - 1 Week New Medications: Magnesium Oxide (Magnesium Oxide) 400 Mg Cap 1 TAB PO DAILY magnesium #14 TAB Pantoprazole (Pantoprazole) 40 Mg Tab 40 MG PO DAILY Reflux #30 Ref 0 TAB Potassium Chloride ER (Potassium Chloride ER) 20 Meq Tab 20 MEQ PO DAILY Electrolyte Replacement #14 Ref 0 TAB Potassium Phosphate Monobasic (K-Phos) 500 Mg Tab 1000 MG PO PCHS Electrolyte Replacement #20 Ref 0 TAB Lisinopril (Lisinopril) 20 Mg Tab 20 MG PO DAILY Blood Pressure Management #30 TAB Metronidazole (Flagyl) 250 Mg Tab 250 MG PO Q8HR zin #12 TAB Continued Medications: Albuterol Neb (Albuterol Neb) 2.5 Mg/3 Ml Neb 2.5 MG NEB Q4HR NEB PRN SHORTNESS OF BREATH #60 Ref 0 NEBULE Alprazolam (Xanax) 0.5 Mg Tab 0.5 MG PO BID PRN ANXIETY Ref 0 TAB Atenolol (Atenolol) 50 Mg Tab 50 MG PO HS Blood Pressure Management #14 Ref 0 TAB Budesonide-Formoterol Inh (Symbicort Inh) 80-4.5 Mcg/Act Aero 2 PUFF INH Q12HR Asthma Management #1 Ref 0 INHALER Diphenhydramine-Acetaminophen (Tylenol Pm Extra Strength) 25-500 Mg Tab 2 TAB PO HS Hydroxychloroquine (Plaquenil) 200 Mg Tab 400 MG PO DAILY Take with food #30 Ref 0 TAB Loratadine (Claritin) 10 Mg Tab 10 MG PO HS Allergy Management Ref 0 TAB Melatonin (Melatonin) 10 Mg Tab 10 MG PO HS Insomnia Discontinued Medications: Lisinopril (Lisinopril) 10 Mg Tab 10 MG PO DAILY #30 Ref 0 TAB Meloxicam (Mobic) 15 Mg Tab 15 MG PO DAILY Arthritis pain Ref 0 TAB Hao Navarrete DO Apr 24, 2016 12:19
[2016-04-24 13:24] LABS: BICARBONATE 30.3 MEQ/L (21.0-32.0); MAGNESIUM 1.3 MG/DL (1.5-2.5); POTASSIUM 3.1 MEQ/L (3.5-5.1)
[2016-04-24 13:40] LABS: MEAN CELL VOLUME 86.9 FL (80.0-100.0); MEAN CORPUSCULAR HEMOGLOBIN 29.9 PG (27.0-34.0); MEAN CORPUSCULAR HGB CONC 34.4 % (32.0-36.0); PLATELET COUNT 240 TH/MM3 (150-450); RED BLOOD COUNT 3.69 MIL/MM3 (4.00-5.30); RED CELL DISTRIBUTION WIDTH 13.6 % (11.6-17.2); REVIEW FLAG FINAL; WHITE BLOOD COUNT 7.7 TH/MM3 (4.0-11.0)
[2016-04-24] MEDS: POTASSIUM PHOSPHATE INJ 30 MMOL in SODIUM CHLOR 0.9% 250 ML INJ 250 ML IV ONE ×2 (14:15→17:52)
[2016-04-24] MEDS ORDERED: POTA-163 PO (14:18)
[2016-04-24] MEDS ORDERED: MAGN400C2 PO (14:18)
[2016-04-24] MEDS ORDERED: K-PHTAB PO (14:18)
[2016-04-24] MEDS: POTASSIUM CHLORIDE 20 MEQ CONTROLLED RELEASE TAB PO SCH ×2 (14:32→17:45)
[2016-04-24] MEDS: MAGNESIUM SULFATE 1 GM PREMIX 100 ML IV SCH ×3 (14:34→16:15)
[2016-04-24 16:00] VITALS: BP 185/73; PULSE 61; RESP 16; TEMP 97.8; O2SAT 97
[2016-04-24] MEDS: PANTOPRAZOLE SODIUM 40 MG VIAL IV PUSH SCH (17:14)
[2016-04-24 20:00] VITALS: BP 199/75; PULSE 60; RESP 24; TEMP 98.2; O2SAT 96
[2016-04-24] MEDS: ATENOLOL 50 MG TAB PO SCH (22:00)
[2016-04-24] MEDS ORDERED: MAGNESIUM SULFATE 1 GM PREMIX 100 ML IV ONE (22:30)
[2016-04-25] VITALS: BP 173/77; PULSE 56; RESP 24; TEMP 96.1; O2SAT 96
[2016-04-25] MEDS: metroNIDAZOLE 250 MG TAB PO SCH (06:00)
[2016-04-25] MEDS: HYDROXYCHLOROQUINE SULFATE 200 MG TAB PO SCH (07:31)
[2016-04-25] MEDS: LISINOPRIL 20 MG TAB PO SCH (07:31)
[2016-04-25] MEDS: SODIUM CHLORIDE 0.9% FLUSH 5 ML FLUSH FLUSH SCH (07:32)
[2016-04-25] MEDS: BUDESONIDE-FORMOTEROL 80/4.5 MCG INHALER INH SCH (07:32)
[2016-04-25 08:00] VITALS: BP 188/79; PULSE 62; RESP 14; TEMP 95.8; O2SAT 98
== END 2016-04-25 07:58 | disposition home or self-care (01) | DRG 372 ==
LOC: NEPE 12:25 → NEDA 15:22 → N07B 21:23
PROVIDERS: ADMIT Hospitalist; ATTEND Hospitalist
DX: A07.1 Giardiasis [lambliasis] (principal); N17.9 Acute kidney failure, unspecified; E87.1 Hypo-osmolality and hyponatremia; E83.42 Hypomagnesemia; J44.9 Chronic obstructive pulmonary disease, unspecified; I10 Essential (primary) hypertension; F43.10 Post-traumatic stress disorder, unspecified; M06.9 Rheumatoid arthritis, unspecified; F12.90 Cannabis use, unspecified, uncomplicated; Z88.0 Allergy status to penicillin; M81.0 Age-related osteoporosis without current pathological fracture; M19.90 Unspecified osteoarthritis, unspecified site; Z87.891 Personal history of nicotine dependence; E86.0 Dehydration; K64.9 Unspecified hemorrhoids; Z80.3 Family history of malignant neoplasm of breast; Z80.42 Family history of malignant neoplasm of prostate; Z82.49 Family history of ischemic heart disease and other diseases of the circulatory system; G43.909 Migraine, unspecified, not intractable, without status migrainosus; E87.6 Hypokalemia; E83.39 Other disorders of phosphorus metabolism
CPT/HCPCS: 74176; 76937; 80048; 80053; 81001; 82272; 83605; 83690; 83735; 84100; 84155; 85025; 85027; 87328; 87329; 87493; 96361; 96372; 96374; 96375; C9113; J0610; J0744; J2405; J2550; J3475; J7030; J7042; J7050

== ENCOUNTER 2016-05-07 11:12 | Inpatient (IN) | payer MEDICARE, OTHER ==
[~2016-05-07] VITALS: Ht 157.5 cm; Wt 52.6 kg
[~2016-05-07 11:12] MED LIST: ALBU0.08 NEB; ALPR.5 PO; ATEN50TA PO; DIPH1TAB36 PO; K-PHTAB PO; LISI-515 PO; LORA-361 PO; MAGN400C2 PO; MELA1TAB27 PO; METR250 PO; PANT40TA3 PO; PLAQ200T PO; POTA-163 PO; SYMB80AE INH
[2016-05-07 11:15] VITALS: BP 152/76; PULSE 58; RESP 20; O2SAT 98
--- NOTE | 2016-05-07 11:38 | PD ---
HPI Chief Complaint: Abnormal Results Time Seen by Provider: 11:25 Travel History International Travel<30 days: No Contact w/Intl Traveler<30days: No Traveled to known affect area: No History of Present Illness HPI 65-year-old female with history of rheumatoid arthritis, COPD, osteoporosis, presents for evaluation of abnormal lab values. The patient was admitted here on April 21 for Giardia colitis. She was hyponatremic and hypokalemic during her hospital stay. She was discharged with magnesium and potassium supplements. She followed up with her primary care physician 3 days ago and was found to be hyperkalemic, the potassium supplement was discontinued, blood work was performed again yesterday and reportedly she had a sodium value of 120 and potassium of 5.5. Her primary care physician advised that she come back to the emergency room. She reports that ever since her colitis infection she has lost approximately 20 pounds of weight. She is still not back to normal diet, primarily eating soups and juices. She denies any nausea, vomiting, abdominal pain. She has had a headache for several days with some "fuzzy" vision. She has no other complaints. PFSH Past Medical History Arthritis: Yes (rheumatoid) Anxiety: No Depression: No Cancer: No Cardiovascular Problems: Yes ( murmer) High Cholesterol: Yes COPD: Yes Endocrine: No Genitourinary: No Hypertension: Yes Immune Disorder: No Musculoskeletal: Yes (OSTEOPOROSIS) Neurologic: No Psychiatric: Yes (PTSD) Reproductive: No Respiratory: Yes ?: Not Past Surgical History Hysterectomy: Yes Other Surgery: Yes (breast biopsy with titanium seeds one week ago.) Social History Alcohol Use: No Tobacco Use: Yes (electronic cigarettes) Substance Use: Yes (occasional marijuana) Allergies-Medications (Allergen,Severity, Reaction): Coded Allergies: Penicillin (Verified Allergy, Unknown, 05/07/16) Reported Meds & Prescriptions Reported Meds & Active Scripts Active K-Phos (Potassium Phosphate Monobasic) 500 Mg Tab 1,000 Mg PO PCHS Magnesium Oxide 400 Mg Cap 1 Tab PO DAILY Lisinopril 20 Mg Tab 20 Mg PO DAILY Reported Tylenol Pm Extra Strength (Diphenhydramine-Acetaminophen) 25-500 Mg Tab 2 Tab PO HS Plaquenil (Hydroxychloroquine Sulfate) 200 Mg Tab 400 Mg PO DAILY Take with food Atenolol 50 Mg Tab 50 Mg PO HS Symbicort Inh (Budesonide/Formoterol Fumarate) 80-4.5 Mcg/Act Aero 2 Puff INH Q12HR Albuterol Neb (Albuterol Sulfate) 2.5 Mg/3 Ml Neb 2.5 Mg NEB Q4HR NEB PRN Claritin (Loratadine) 10 Mg Tab 10 Mg PO HS Xanax (Alprazolam) 0.5 Mg Tab 0.5 Mg PO BID PRN Melatonin 10 Mg Tab 10 Mg PO HS Review of Systems Except as stated in HPI: all other systems reviewed are Neg Physical Exam Narrative GENERAL: Well-developed well-nourished female in no acute distress SKIN: Warm and dry. HEAD: Atraumatic. Normocephalic. EYES: Pupils equal and round. No scleral icterus. No injection or drainage. ENT: No nasal bleeding or discharge. Mucous membranes pink and moist. NECK: Trachea midline. No JVD. CARDIOVASCULAR: Regular rate and rhythm. No murmur appreciated. RESPIRATORY: No accessory muscle use. Clear to auscultation. Breath sounds equal bilaterally. GASTROINTESTINAL: Abdomen soft, non-tender, nondistended. Hepatic and splenic margins not palpable. MUSCULOSKELETAL: No obvious deformities. No edema. NEUROLOGICAL: Awake and alert. No obvious cranial nerve deficits. Motor grossly within normal limits. Normal speech. PSYCHIATRIC: Appropriate mood and affect; insight and judgment normal. Data Data Last Documented VS Vital Signs Date Time Temp Pulse Resp B/P Pulse Ox O2 Delivery O2 Flow Rate FiO2 05/07/16 12:31 53 18 133/61 97 Room Air Orders Complete Blood Count With Diff (05/07/16 11:33) Basic Metabolic Panel (Bmp) (05/07/16 11:33) Magnesium (Mg) (05/07/16 11:33) Electrocardiogram (05/07/16 ) Ct Brain W/O Iv Contrast(Rout) (05/07/16 ) Osmolality,Serum (05/07/16 11:33) Osmolality, Urine (05/07/16 11:33) Sodium Chlor 0.9% 1000 Ml Inj (Ns 1000 M (05/07/16 12:45) Labs Laboratory Tests Test 05/07/16 11:45 White Blood Count 4.9 TH/MM3 Red Blood Count 4.15 MIL/MM3 Hemoglobin 12.0 GM/DL Hematocrit 35.4 % Mean Corpuscular Volume 85.4 FL Mean Corpuscular Hemoglobin 28.9 PG Mean Corpuscular Hemoglobin 33.8 % Concent Red Cell Distribution Width 12.7 % Platelet Count 376 TH/MM3 Mean Platelet Volume 7.8 FL Neutrophils (%) (Auto) 67.6 % Lymphocytes (%) (Auto) 19.0 % Monocytes (%) (Auto) 12.7 % Eosinophils (%) (Auto) 0.0 % Basophils (%) (Auto) 0.7 % Neutrophils # (Auto) 3.3 TH/MM3 Lymphocytes # (Auto) 0.9 TH/MM3 Monocytes # (Auto) 0.6 TH/MM3 Eosinophils # (Auto) 0.0 TH/MM3 Basophils # (Auto) 0.0 TH/MM3 CBC Comment DIFF FINAL Differential Comment Sodium Level 118 MEQ/L Potassium Level 4.8 MEQ/L Chloride Level 79 MEQ/L Carbon Dioxide Level 27.3 MEQ/L Anion Gap 12 MEQ/L Blood Urea Nitrogen 6 MG/DL Creatinine 0.81 MG/DL Estimat Glomerular Filtration 71 ML/MIN Rate Random Glucose 96 MG/DL Serum Osmolality 243 MOSM/KG Calcium Level 8.6 MG/DL Magnesium Level 1.7 MG/DL [facility] Medical Decision Making Medical Screen Exam Complete: Yes Emergency Medical Condition: Yes Medical Record Reviewed: Yes Differential Diagnosis Hyperkalemia, hypovolemic hyponatremia, euvolemic hyponatremia, dehydration, arrhythmia Narrative Course 65-year-old female recently discharged after a hospital stay for cardiac colitis presents for evaluation of hyponatremia and hyperkalemia on outpatient lab testing. She endorses generalized headache for 4 days with "fuzzy vision." She is still on primarily a liquid diet. This patient was initially seen in triage where lab work, EKG and CT of the brain have been ordered. The patient will be moved to a medical bed when one becomes available. Leno Sellers May 07, 2016 11:38
[2016-05-07 12:05] LABS: AUTOMATED NEUTROPHIL # 3.3 TH/MM3 (1.8-7.7); BASOPHIL % 0.7 % (0.0-2.0); HEMATOCRIT 35.4 % (35.0-46.0); HEMO FLAGS DIFF FINAL; LYMPHOCYTE # 0.9 TH/MM3 (1.0-4.8); MEAN CELL VOLUME 85.4 FL (80.0-100.0); MEAN CORPUSCULAR HEMOGLOBIN 28.9 PG (27.0-34.0); MEAN CORPUSCULAR HGB CONC 33.8 % (32.0-36.0); MONO % 12.7 % (0.0-8.0); NEUT % 67.6 % (16.0-70.0); PLATELET COUNT 376 TH/MM3 (150-450); RED BLOOD COUNT 4.15 MIL/MM3 (4.00-5.30); RED CELL DISTRIBUTION WIDTH 12.7 % (11.6-17.2); WHITE BLOOD COUNT 4.9 TH/MM3 (4.0-11.0)
--- NOTE | 2016-05-07 12:12 | RADRPT ---
EXAM DATE/TIME: 05/07/2016 11:57 [facility] COMPARISON: No previous studies available for comparison. INDICATIONS : Headache RADIATION DOSE: 56.35 CTDIvol (mGy) MEDICAL HISTORY : Hypertension. Chronic obstructive pulmonary disease. SURGICAL HISTORY : None. ENCOUNTER: Initial ACUITY: 1 week PAIN SCALE: 9/10 LOCATION: cranial TECHNIQUE: Multiple contiguous axial images were obtained of the head. Using automated exposure control and adj ustment of the mA and/or kV according to patient size, radiation dose was kept as low as reasonably a chievable to obtain optimal diagnostic quality images. FINDINGS: CEREBRUM: The ventricles are normal for age. No evidence of midline shift, mass lesion, hemorrhage or acute in farction. No extra-axial fluid collections are seen. POSTERIOR FOSSA: The cerebellum and brainstem are intact. The 4th ventricle is midline. The cerebellopontine angle i s unremarkable. EXTRACRANIAL: The visualized portion of the orbits is intact. SKULL: The calvaria is intact. No evidence of skull fracture. CONCLUSION: No acute disease. Zak Arora MD FACR on May 07, 2016 at 12:10 Board Certified Radiologist. This report was verified electronically.
[2016-05-07 12:28] LABS: BICARBONATE 27.3 MEQ/L (21.0-32.0); MAGNESIUM 1.7 MG/DL (1.5-2.5); POTASSIUM 4.8 MEQ/L (3.5-5.1)
[2016-05-07 12:31] VITALS: BP 133/61; PULSE 53; RESP 18; O2SAT 97
[2016-05-07] MEDS ORDERED: SODIUM CHLOR 0.9% 1000 ML INJ 1,000 ML IV ONE (12:45)
--- NOTE | 2016-05-07 12:46 | PD ---
Physical Exam Narrative Patient was seen by my sales and marketing assistant and signed out to me. Data Data Last Documented VS Vital Signs Date Time Temp Pulse Resp B/P Pulse Ox O2 Delivery O2 Flow Rate FiO2 05/07/16 12:31 53 18 133/61 97 Room Air Orders Complete Blood Count With Diff (05/07/16 11:33) Basic Metabolic Panel (Bmp) (05/07/16 11:33) Magnesium (Mg) (05/07/16 11:33) Electrocardiogram (05/07/16 ) Ct Brain W/O Iv Contrast(Rout) (05/07/16 ) Osmolality,Serum (05/07/16 11:33) Osmolality, Urine (05/07/16 11:33) Sodium Chlor 0.9% 1000 Ml Inj (Ns 1000 M (05/07/16 12:45) Labs Laboratory Tests Test 05/07/16 11:45 White Blood Count 4.9 TH/MM3 Red Blood Count 4.15 MIL/MM3 Hemoglobin 12.0 GM/DL Hematocrit 35.4 % Mean Corpuscular Volume 85.4 FL Mean Corpuscular Hemoglobin 28.9 PG Mean Corpuscular Hemoglobin 33.8 % Concent Red Cell Distribution Width 12.7 % Platelet Count 376 TH/MM3 Mean Platelet Volume 7.8 FL Neutrophils (%) (Auto) 67.6 % Lymphocytes (%) (Auto) 19.0 % Monocytes (%) (Auto) 12.7 % Eosinophils (%) (Auto) 0.0 % Basophils (%) (Auto) 0.7 % Neutrophils # (Auto) 3.3 TH/MM3 Lymphocytes # (Auto) 0.9 TH/MM3 Monocytes # (Auto) 0.6 TH/MM3 Eosinophils # (Auto) 0.0 TH/MM3 Basophils # (Auto) 0.0 TH/MM3 CBC Comment DIFF FINAL Differential Comment Sodium Level 118 MEQ/L Potassium Level 4.8 MEQ/L Chloride Level 79 MEQ/L Carbon Dioxide Level 27.3 MEQ/L Anion Gap 12 MEQ/L Blood Urea Nitrogen 6 MG/DL Creatinine 0.81 MG/DL Estimat Glomerular Filtration 71 ML/MIN Rate Random Glucose 96 MG/DL Serum Osmolality 243 MOSM/KG Calcium Level 8.6 MG/DL Magnesium Level 1.7 MG/DL [facility] Supervised Visit with RITA: Yes Interpretation(s) 12:44 PM. Last Impressions Head CT 05/07/16 0000 Signed Impressions: Service Date/Time: April 11:57 - CONCLUSION: No acute disease. Zak Arora MD FACR 12:44 PM. CBC within normal limit. Sodium 118. Narrative Course Normal saline solution 1 L IV bolus. Diagnosis Primary Impression: Hyponatremia Additional Impression: Cephalgia Qualified Code: R51 - Nonintractable episodic headache, unspecified headache type Admitting Information Admitting Physician Requests: Admit Anthony Candelaria MD May 07, 2016 12:46
[2016-05-07] MEDS ORDERED: SENNOSIDES 8.6 MG TAB PO PRN (13:15)
[2016-05-07] MEDS ORDERED: ZOLPIDEM TARTRATE 5 MG TAB PO PRN (13:15)
[2016-05-07] MEDS ORDERED: NALOXONE HCL 0.4 MG/ML AMP IV PRN (13:15)
[2016-05-07] MEDS ORDERED: SODIUM CHLORIDE 0.9% FLUSH 5 ML FLUSH FLUSH PRN (13:15)
[2016-05-07] MEDS ORDERED: ONDANSETRON HCL 4 MG/2 ML VIAL IVP PRN (13:15)
[2016-05-07] MEDS ORDERED: ACETAMINOPHEN 325 MG TAB PO PRN ×2 (13:15)
[2016-05-07] MEDS ORDERED: DOCUSATE SODIUM 100 MG CAP PO SCH (14:00)
[2016-05-07 15:28] VITALS: BP 109/59; PULSE 57; RESP 18; O2SAT 97
--- NOTE | 2016-05-07 16:51 | HHI.HP ---
HPI Service [facility] Primary Care Physician Non-Staff Admission Diagnosis hyponatremia . Cephalgia. 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 The patient completed a course of Flagyl for her colitis and she says her diarrhea has resolved and she currently has soft stools. The patient went to her primary care doctor's office on Wednesday for routine follow-up and she was told to repeat the labs she had done because they were abnormal. She repeated those labs and they confirmed the abnormal values so she was referred to the hospital for further evaluation. The patient states that the abnormal labs consisted of an elevated potassium level and a decreased sodium level. The patient says since she's been discharged she continues to have a headache. She says the pain is located at the top of her head and goes to the back of her head. The headache will get better with laying down and gets worse with sitting up. The patient also endorses blurry vision. She says she was recently told she has cataracts and she thinks that might be a part of her blurry vision. She says her new glasses are not improving her vision. She denies any confusion. The patient says she doesn't have much of an appetite. She has been drinking plenty of water and juice. She has been ambulating well and does not report any dizziness. Review of Systems Except as stated in HPI: all other systems reviewed are Neg Past Family Social History Past Medical History Giardia colitis Osteoporosis Rheumatoid arthritis Osteoarthritis COPD Hypertension Cataracts Hyponatremia Past Surgical History Bilateral breast biopsies Hysterectomy Allergies: Coded Allergies: Penicillin (Verified Allergy, Unknown, 05/07/16) Active Ordered Medications Current Medications Medications (Trade) Dose Ordered Sig/Tyrone Route Start Time Stop Time Status Last Admin (Xanax) 0.5 mg BID PRN PO 05/07/16 13:15 (Tenormin) 50 mg HS PO 05/07/16 21:00 (Symbicort 80-4.5 Mcg Inh) 2 puff Q12HR INH 05/07/16 21:00 (Plaquenil) 400 mg DAILY PO 05/08/16 09:00 (Prinivil) 20 mg DAILY PO 05/08/16 09:00 (Claritin) 10 mg HS PO 05/07/16 21:00 (Mag-Ox) 400 mg DAILY PO 05/08/16 09:00 (NS Flush) 2 ml UNSCH PRN FLUSH 05/07/16 13:15 (NS Flush) 2 ml BID FLUSH 05/07/16 21:00 (Tylenol) 650 mg Q4H PRN PO 05/07/16 13:15 (Zofran Inj) 4 mg Q6H PRN IVP 05/07/16 13:15 (Colace) 100 mg Q12H PO 05/07/16 14:00 05/07/16 14:01 (Senokot) 17.2 mg Q12H PRN PO 05/07/16 13:15 (Ambien) 5 mg HS PRN PO 05/07/16 13:15 (Tylenol) 650 mg Q6H PRN PO 05/07/16 13:15 (Roxicodone) 10 mg Q4H PRN PO 05/07/16 13:15 (Roxicodone) 5 mg Q4H PRN PO 05/07/16 13:15 (Narcan Inj) 0.4 mg UNSCH PRN IV 05/07/16 13:15 Family History CAD Social History Patient reports she quit smoking cigarettes 4 years ago and now uses electronic cigarettes; She denies alcohol use; Uses MJ occasionally. Physical Exam Vital Signs Vital Signs Date Time Temp Pulse Resp B/P Pulse Ox O2 Delivery O2 Flow Rate FiO2 05/07/16 15:28 57 18 109/59 97 Room Air 05/07/16 12:31 53 18 133/61 97 Room Air 05/07/16 11:15 58 20 152/76 98 Room Air Physical Exam GENERAL: This is a well-nourished, well-developed patient, in no apparent distress. SKIN: No rashes, ecchymoses or lesions. Cool and dry. HEAD: Atraumatic. Normocephalic. No temporal or scalp tenderness. EYES: Pupils equal round and reactive. Extraocular motions intact. No scleral icterus. No injection or drainage. ENT: Nose without bleeding, purulent drainage or septal hematoma. Throat without erythema, tonsillar hypertrophy or exudate. Uvula midline. Airway patent. NECK: Trachea midline. No JVD or lymphadenopathy. Supple, nontender, no meningeal signs. CARDIOVASCULAR: Regular rate and rhythm without murmurs, gallops, or rubs. RESPIRATORY: Clear to auscultation. Breath sounds equal bilaterally. No wheezes , rales, or rhonchi. GASTROINTESTINAL: Abdomen soft, non-tender, nondistended. No hepato-splenomegaly , or palpable masses. No guarding. MUSCULOSKELETAL: Extremities without clubbing, cyanosis, or edema. No joint tenderness, effusion, or edema noted. NEUROLOGICAL: Awake and alert. Cranial nerves II through XII intact. Motor and sensory grossly within normal limits. Five out of 5 muscle strength in all muscle groups. Normal speech. PSYCH: Mood and affect appropriate. Laboratory Laboratory Tests Test 05/07/16 11:45 White Blood Count 4.9 Red Blood Count 4.15 Hemoglobin 12.0 Hematocrit 35.4 Mean Corpuscular Volume 85.4 Mean Corpuscular Hemoglobin 28.9 Mean Corpuscular Hemoglobin 33.8 Concent Red Cell Distribution Width 12.7 Platelet Count 376 Mean Platelet Volume 7.8 Neutrophils (%) (Auto) 67.6 Lymphocytes (%) (Auto) 19.0 Monocytes (%) (Auto) 12.7 Eosinophils (%) (Auto) 0.0 Basophils (%) (Auto) 0.7 Neutrophils # (Auto) 3.3 Lymphocytes # (Auto) 0.9 Monocytes # (Auto) 0.6 Eosinophils # (Auto) 0.0 Basophils # (Auto) 0.0 CBC Comment DIFF FINAL Differential Comment Sodium Level 118 Potassium Level 4.8 Chloride Level 79 Carbon Dioxide Level 27.3 Anion Gap 12 Blood Urea Nitrogen 6 Creatinine 0.81 Estimat Glomerular Filtration 71 Rate Random Glucose 96 Serum Osmolality 243 Calcium Level 8.6 Magnesium Level 1.7 Result Diagram: 05/07/16 1145 05/07/16 1145 Imaging Last Impressions Head CT 05/07/16 0000 Signed Impressions: Service Date/Time: April 11:57 - CONCLUSION: No acute disease. Zak Arora MD FACR Assessment and Plan Assessment and Plan Acute on chronic hyponatremia The patient was hyponatremic on the recent admission but her values were lower on presentation with a sodium of 118. She does not have much of an appetite and has been drinking a lot of water and juices. Serum osmolarity is 243, urine osmolarity is pending. She received IV fluids in the emergency department. CT of the head was unremarkable. - follow BMP. Will ensure gradual increase in sodium level. - fluid restriction. - Nephrology consultation requested. - follow urine osmolarity. - dietary consult for malnutrition. Headache/ Blurry vision The patient has had a chronic headache. She has also had blurry vision. The blurry vision may be secondary to recently diagnosed cataracts. - With the chronic headache and hyponatremia we will obtain an MRI of the brain. - Fioricet as needed. Bradycardia The patient is on atenolol. EKG with sinus bradycardia. - continue to monitor. HTN Blood pressure is well controlled at this time. - continue home meds. PPx: SCDs. Discussed Condition With Pt, Dr. Candelaria, nurse. Physician Certification 2 Midnight Certification Type: Admission for Inpatient Services Order for Inpatient Services The services are ordered in accordance with Medicare regulations or non- Medicare payer requirements, as applicable. In the case of services not specified as inpatient-only, they are appropriately provided as inpatient services in accordance with the 2-midnight benchmark. Estimated LOS (days): 2 days is the estimated time the patient will need to remain in the hospital, assuming treatment plan goals are met and no additional complications. Post-Hospital Plan: Home Problem Qualifiers (1) Cephalgia: Qualified Code: R51 - Nonintractable episodic headache, unspecified headache type Hao Navarrete DO May 07, 2016 16:51
[2016-05-07 16:52] LABS: BACTERIA, URINE RARE /hpf; BLOOD, URINE NEG (NEG); COMMENT (UR) CULT NOT INDICATED; CULTURE IF INDICATED CULT NOT INDICATED; GLUCOSE,URINE NEG (NEG); HYALINE CAST, URINE 1 /lpf (RARE); KETONE, URINE NEG (NEG); NITRITE,URINE NEG (NEG); PH, URINE 7.5 (5.0-8.5); SQUAMOUS EPITHELIAL CELL URINE 18 /hpf (0-5); TRANSITIONAL EPI CELLS, URINE <1 /hpf; URINE COLOR LIGHT-YELLOW (YELLW/STRAW)
[2016-05-07] MEDS ORDERED: GADODIAMIDE PF 287 MG/ML 10 ML VIAL (for RAD MRI) IV ONE (17:22)
[2016-05-07 17:50] VITALS: BP 156/68; PULSE 58; RESP 22; TEMP 96.4; O2SAT 97
--- NOTE | 2016-05-07 17:50 | RADRPT ---
EXAM DATE/TIME: 05/07/2016 17:04 [place] COMPARISON: CT BRAIN W/O CONTRAST, May 07, 2016, 11:57. INDICATIONS : Cephalgia. CONTRAST: 10 cc Omniscan (gadodiamide) IV MEDICAL HISTORY : Hypertension. SURGICAL HISTORY : Hysterectomy. Lumpectomy. ENCOUNTER: Initial ACUITY: 1 week PAIN SCORE: 7/10 LOCATION: Head. TECHNIQUE: Multiplanar, multisequence MRI of the brain was performed both prior to and following the administrat ion of paramagnetic contrast. FINDINGS: CEREBRUM: The ventricles are normal for age. No evidence of midline shift, mass lesion, hemorrhage or acute in farction. No extraaxial fluid collections are seen. The pituitary gland and suprasellar cistern are normal in configuration. WHITE MATTER: No significant signal abnormalities are seen in the white matter. POSTERIOR FOSSA: The cerebellum and brainstem are intact. The 4th ventricle is midline. The cerebellopontine angle is unremarkable. The cerebellar tonsils are normal in position. DIFFUSION IMAGING: No focal areas of restricted diffusion are seen. No evidence of acute infarction. EXTRACRANIAL: The visualized portions of the orbits and paranasal sinuses are unremarkable. POST-CONTRAST: No abnormal areas of parenchymal or dural enhancement. No evidence of blood-brain barrier breakdown. CONCLUSION: Normal MRI of the brain. Jai Villasenor MD on May 07, 2016 at 17:48 Board Certified Radiologist. This report was verified electronically.
[2016-05-07] MEDS ORDERED: MAGNESIUM SULFATE 1 GM PREMIX 100 ML IV ONE (18:00)
--- NOTE | 2016-05-07 18:28 | PD.CONS ---
HPI Service nephrology Consult Requested By Reason for Consult Hyponatremia Primary Care Physician Non-Staff History of Present Illness This patient was recently admitted for Giardia colitis and discharged on Flagyl. She also was having headache at that time. Her serum Na was around 131- 135, mildly low. She has been readmitted with abnormal labs: serum Na of 118. She continues to have headache. Some blurry vision is reported as well. No confusion. Patient reports that she was drinking a lot of fluids as she had some diarrhea and vomiting. She also was drinking fruit juice. She tells me that her family physician had told her that her sodium level was slightly low, and had asked her to increase salt in her food. Review of Systems Constitutional: DENIES: Fever, Weight gain Eyes: COMPLAINS OF: Blurred vision Ears, nose, mouth, throat: DENIES: Tinnitus Respiratory: DENIES: Apneas, Cough Cardiovascular: DENIES: Chest pain, Palpitations, Syncope Gastrointestinal: DENIES: Black stools, Bloody stools Genitourinary: DENIES: Abnormal vaginal bleeding Neurologic: COMPLAINS OF: Headache Past Family Social History Allergies: Coded Allergies: Penicillin (Verified Allergy, Unknown, 05/07/16) Past Medical History COPD Rheumatoid arthritis History of tobacco abuse. Giardia colitis Osteoporosis Rheumatoid arthritis Osteoarthritis COPD Hypertension Cataracts Hyponatremia Past Surgical History Bilateral breast biopsies Hysterectomy Reported Medications K-Phos (Potassium Phosphate Monobasic) 500 Mg Tab 1,000 Mg PO PCHS Magnesium Oxide 400 Mg Cap 1 Tab PO DAILY Lisinopril 20 Mg Tab 20 Mg PO DAILY Reported Tylenol Pm Extra Strength (Diphenhydramine-Acetaminophen) 25-500 Mg Tab 2 Tab PO HS Plaquenil (Hydroxychloroquine Sulfate) 200 Mg Tab 400 Mg PO DAILY Take with food Atenolol 50 Mg Tab 50 Mg PO HS Symbicort Inh (Budesonide/Formoterol Fumarate) 80-4.5 Mcg/Act Aero 2 Puff INH Q12HR Albuterol Neb (Albuterol Sulfate) 2.5 Mg/3 Ml Neb 2.5 Mg NEB Q4HR NEB PRN Claritin (Loratadine) 10 Mg Tab 10 Mg PO HS Xanax (Alprazolam) 0.5 Mg Tab 0.5 Mg PO BID PRN Melatonin 10 Mg Tab 10 Mg PO HS Active Ordered Medications Current Medications Medications (Trade) Dose Ordered Sig/Tyrone Route Start Time Stop Time Status Last Admin (Xanax) 0.5 mg BID PRN PO 05/07/16 13:15 (Tenormin) 50 mg HS PO 05/07/16 21:00 (Symbicort 80-4.5 Mcg Inh) 2 puff Q12HR INH 05/07/16 21:00 (Plaquenil) 400 mg DAILY PO 05/08/16 09:00 (Prinivil) 20 mg DAILY PO 05/08/16 09:00 (Claritin) 10 mg HS PO 05/07/16 21:00 (Mag-Ox) 400 mg DAILY PO 05/08/16 09:00 (NS Flush) 2 ml UNSCH PRN FLUSH 05/07/16 13:15 (NS Flush) 2 ml BID FLUSH 05/07/16 21:00 (Tylenol) 650 mg Q4H PRN PO 05/07/16 13:15 (Zofran Inj) 4 mg Q6H PRN IVP 05/07/16 13:15 (Senokot) 17.2 mg Q12H PRN PO 05/07/16 13:15 (Ambien) 5 mg HS PRN PO 05/07/16 13:15 (Tylenol) 650 mg Q6H PRN PO 05/07/16 13:15 (Roxicodone) 10 mg Q4H PRN PO 05/07/16 13:15 (Roxicodone) 5 mg Q4H PRN PO 05/07/16 13:15 Naloxone HCl 0.4 mg 0.4 mg UNSCH PRN IV 05/07/16 13:15 (Magnesium Sulfate 1 Gm Premix) 100 ml @ 100 mls/hr ONCE ONCE IV 05/07/16 18:00 05/07/16 18:59 (Fioricet 325-50-40) 1 tab Q6H PRN PO 05/07/16 17:00 Family History non contributory. Mother had breast cancer and heart disease. Social History History of heavy tobacco abuse: 80 pack year history of smoking, quit 4 years ago, but used to smoke E-Cigarettes until recently. Physical Exam Vital Signs Vital Signs Date Time Temp Pulse Resp B/P Pulse Ox O2 Delivery O2 Flow Rate FiO2 05/07/16 17:50 96.4 58 22 156/68 97 05/07/16 15:28 57 18 109/59 97 Room Air 05/07/16 12:31 53 18 133/61 97 Room Air 05/07/16 11:15 58 20 152/76 98 Room Air Physical Exam GENERAL: alert, oriented. SKIN: Warm and dry. HEAD: Normocephalic. EYES: No scleral icterus. No injection or drainage. NECK: Supple, trachea midline. No JVD or lymphadenopathy. CARDIOVASCULAR: Regular rate and rhythm without murmurs, gallops, or rubs. RESPIRATORY: Breath sounds equal bilaterally. No accessory muscle use. GASTROINTESTINAL: Abdomen soft, non-tender, nondistended. MUSCULOSKELETAL: No cyanosis, or edema. BACK: Nontender without obvious deformity. No CVA tenderness. Laboratory Laboratory Tests Test 05/07/16 05/07/16 11:45 16:23 White Blood Count 4.9 Red Blood Count 4.15 Hemoglobin 12.0 Hematocrit 35.4 Mean Corpuscular Volume 85.4 Mean Corpuscular Hemoglobin 28.9 Mean Corpuscular Hemoglobin 33.8 Concent Red Cell Distribution Width 12.7 Platelet Count 376 Mean Platelet Volume 7.8 Neutrophils (%) (Auto) 67.6 Lymphocytes (%) (Auto) 19.0 Monocytes (%) (Auto) 12.7 Eosinophils (%) (Auto) 0.0 Basophils (%) (Auto) 0.7 Neutrophils # (Auto) 3.3 Lymphocytes # (Auto) 0.9 Monocytes # (Auto) 0.6 Eosinophils # (Auto) 0.0 Basophils # (Auto) 0.0 CBC Comment DIFF FINAL Differential Comment Sodium Level 118 Potassium Level 4.8 Chloride Level 79 Carbon Dioxide Level 27.3 Anion Gap 12 Blood Urea Nitrogen 6 Creatinine 0.81 Estimat Glomerular Filtration 71 Rate Random Glucose 96 Serum Osmolality 243 Calcium Level 8.6 Magnesium Level 1.7 Urine Color LIGHT-YELLOW Urine Turbidity HAZY Urine pH 7.5 Urine Specific [place] 1.005 Urine Protein NEG Urine Glucose (UA) NEG Urine Ketones NEG Urine Occult Blood NEG Urine Nitrite NEG Urine Bilirubin NEG Urine Urobilinogen LESS THAN 2.0 Urine Leukocyte Esterase NEG Urine WBC 2 Urine Squamous Epithelial 18 Cells Urine Transitional Epithelial <1 Cells Urine Bacteria RARE Urine Hyaline Casts 1 Microscopic Urinalysis Comment CULT NOT INDICATED Urine Osmolality 139 Result Diagram: 05/07/16 1145 05/07/16 1145 Assessment and Plan Problem List: (1) Hyponatremia Plan: may have mild chronic hyponatremia, etiology could be SIADH. It has worsened, likely due to poor solute intake and excessive fluid intake in the past 2 weeks as she was trying to maintain hydration in the presence of diarrhea. Obtain urine Na, urine osmolality and serum Uric acid. Start oral fluid restriction. Monitor. She has no neurological signs, no need for hypertonic fluids. If SIADH is strongly suspected, consider obtaining chest CT as she has history of heavy smoking. (2) COPD (chronic obstructive pulmonary disease) Plan: could be the cause of SIADH? Monitor her symptoms. (3) Essential (primary) hypertension Plan: Restart her medications. Assessment and Plan Thanks for the consult. I will follow. Enrique Bain MD May 07, 2016 18:27
[2016-05-07 20:00] VITALS: BP 120/69; PULSE 55; RESP 18; TEMP 96.3; O2SAT 96
[2016-05-07] MEDS ORDERED: ATENOLOL 50 MG TAB PO SCH (21:00)
[2016-05-07] MEDS: SODIUM CHLORIDE 0.9% FLUSH 5 ML FLUSH FLUSH SCH (21:00)
[2016-05-07] MEDS: BUDESONIDE-FORMOTEROL 80/4.5 MCG INHALER INH SCH (21:00)
[2016-05-07 21:19] LABS: BICARBONATE 28.7 MEQ/L (21.0-32.0); POTASSIUM 4.2 MEQ/L (3.5-5.1)
[2016-05-07] MEDS: ACETAMIN 325 MG/BUTALBITAL 50 MG/CAFFEINE 40 MG TAB PO PRN (23:46)
[2016-05-07] MEDS: LORATADINE 10 MG TAB PO SCH (23:46)
[2016-05-07] MEDS: ALPRAZolam 0.5 MG TAB PO PRN (23:51)
[2016-05-08] VITALS: BP 106/52; PULSE 64; RESP 20; TEMP 97; O2SAT 96
[2016-05-08 00:56] LABS: BICARBONATE 25.8 MEQ/L (21.0-32.0); MAGNESIUM 1.9 MG/DL (1.5-2.5); POTASSIUM 4.1 MEQ/L (3.5-5.1)
[2016-05-08 04:00] VITALS: BP 97/52; PULSE 56; RESP 20; TEMP 97.2; O2SAT 97
[2016-05-08 07:26] LABS: BICARBONATE 28.1 MEQ/L (21.0-32.0); POTASSIUM 4.3 MEQ/L (3.5-5.1)
[2016-05-08 08:00] VITALS: BP 121/57; PULSE 50; RESP 18; TEMP 97.1; O2SAT 96
[2016-05-08] MEDS: HYDROXYCHLOROQUINE SULFATE 200 MG TAB PO SCH (09:00)
[2016-05-08] MEDS: BUDESONIDE-FORMOTEROL 80/4.5 MCG INHALER INH SCH ×2 (09:00→23:45)
[2016-05-08] MEDS: SODIUM CHLORIDE 0.9% FLUSH 5 ML FLUSH FLUSH SCH ×2 (09:00→23:44)
[2016-05-08] MEDS: LISINOPRIL 20 MG TAB PO SCH (09:31)
[2016-05-08] MEDS: MAGNESIUM OXIDE 400 MG TAB PO SCH (09:32)
--- NOTE | 2016-05-08 10:11 | HHI.PR ---
Subjective Remarks The patient was feeling well this morning. She says she had a headache last night that improved with Fioricet. She says she has been short of breath with ambulation and wanted to get her Symbicort dose. She wanted to go home. No other acute complaints. Objective Vitals Vital Signs Date Time Temp Pulse Resp B/P Pulse Ox O2 Delivery O2 Flow Rate FiO2 05/08/16 08:00 97.1 50 18 121/57 96 05/08/16 04:00 97.2 56 20 97/52 97 05/08/16 00:00 97.0 64 20 106/52 96 05/07/16 20:00 96.3 55 18 120/69 96 05/07/16 17:50 96.4 58 22 156/68 97 05/07/16 15:28 57 18 109/59 97 Room Air 05/07/16 12:31 53 18 133/61 97 Room Air 05/07/16 11:15 58 20 152/76 98 Room Air I/O 05/07/16 05/07/16 05/07/16 05/08/16 05/08/16 05/08/16 07:00 15:00 23:00 07:00 15:00 23:00 Intake Total 240 ml 120 ml Balance 240 ml 120 ml Intake Oral 240 ml 120 ml # Voids 2 3 # Bowel Movements 0 Result Diagram: 05/07/16 1145 05/08/16 0600 Imaging Last Impressions Head CT 05/07/16 0000 Signed Impressions: Service Date/Time: April 11:57 - CONCLUSION: No acute disease. Zak Arora MD FACR Brain MRI 05/07/16 0000 Signed Impressions: Service Date/Time: April 17:04 - CONCLUSION: Normal MRI of the brain. Jai Villasenor MD Objective Remarks GENERAL: This is a well-nourished, well-developed patient, in no apparent distress. SKIN: No rashes, ecchymoses or lesions. Cool and dry. HEAD: Atraumatic. Normocephalic. No temporal or scalp tenderness. EYES: Pupils equal round and reactive. Extraocular motions intact. No scleral icterus. No injection or drainage. ENT: Nose without bleeding, purulent drainage or septal hematoma. Throat without erythema, tonsillar hypertrophy or exudate. Uvula midline. Airway patent. NECK: Trachea midline. No JVD or lymphadenopathy. Supple, nontender, no meningeal signs. CARDIOVASCULAR: Regular rate and rhythm without murmurs, gallops, or rubs. RESPIRATORY: Clear to auscultation. Breath sounds equal bilaterally. No wheezes , rales, or rhonchi. GASTROINTESTINAL: Abdomen soft, non-tender, nondistended. No hepato-splenomegaly , or palpable masses. No guarding. MUSCULOSKELETAL: Extremities without clubbing, cyanosis, or edema. No joint tenderness, effusion, or edema noted. NEUROLOGICAL: Awake and alert. Cranial nerves II through XII intact. Motor and sensory grossly within normal limits. Five out of 5 muscle strength in all muscle groups. Normal speech. PSYCH: Mood and affect appropriate. Medications and IVs Current Medications Medications (Trade) Dose Ordered Sig/Tyrone Route Start Time Stop Time Status Last Admin (Xanax) 0.5 mg BID PRN PO 05/07/16 13:15 05/07/16 23:51 (Symbicort 80-4.5 Mcg Inh) 2 puff Q12HR INH 05/07/16 21:00 (Plaquenil) 400 mg DAILY PO 05/08/16 09:00 (Prinivil) 20 mg DAILY PO 05/08/16 09:00 05/08/16 09:31 (Claritin) 10 mg HS PO 05/07/16 21:00 05/07/16 23:46 (Mag-Ox) 400 mg DAILY PO 05/08/16 09:00 05/08/16 09:32 (NS Flush) 2 ml UNSCH PRN FLUSH 05/07/16 13:15 (NS Flush) 2 ml BID FLUSH 05/07/16 21:00 05/07/16 21:00 (Tylenol) 650 mg Q4H PRN PO 05/07/16 13:15 (Zofran Inj) 4 mg Q6H PRN IVP 05/07/16 13:15 (Senokot) 17.2 mg Q12H PRN PO 05/07/16 13:15 (Ambien) 5 mg HS PRN PO 05/07/16 13:15 (Tylenol) 650 mg Q6H PRN PO 05/07/16 13:15 (Roxicodone) 10 mg Q4H PRN PO 05/07/16 13:15 05/07/16 23:52 (Roxicodone) 5 mg Q4H PRN PO 05/07/16 13:15 (Narcan Inj) 0.4 mg UNSCH PRN IV 05/07/16 13:15 (Fioricet 325-50-40) 1 tab Q6H PRN PO 05/07/16 17:00 05/07/16 23:46 (Tenormin) 25 mg HS PO 05/08/16 21:00 A/P Problem List: (1) Hyponatremia ICD Code: E87.1 Status: Acute (2) Cephalgia ICD Code: R51 Status: Acute (3) Appetite loss ICD Code: R63.0 Status: Acute Assessment and Plan Acute on chronic hyponatremia The patient was hyponatremic on the recent admission but her values were lower on presentation with a sodium of 118. She does not have much of an appetite and has been drinking a lot of water and juices. Serum osmolarity is 243, urine osmolarity is 139. She received IV fluids in the emergency department. CT of the head was unremarkable. Nephrology consult appreciated. - follow BMP. Will ensure gradual increase in sodium level. Improved to 125 . - fluid restriction. - follow up with nephrology. - dietary consult for malnutrition. Headache/ Blurry vision The patient has had a chronic headache. She has also had blurry vision. The blurry vision may be secondary to recently diagnosed cataracts. MRI brain normal. - Fioricet as needed. - outpt follow up with ophtho. Bradycardia The patient is on atenolol. EKG with sinus bradycardia. - decrease atenolol to 25 mg HS. HTN Blood pressure is well controlled at this time. - continue home meds. Atenolol dose reduced. PPx: SCDs. Discharge Planning Likely d/c home in AM. Problem Qualifiers (1) Cephalgia: Qualified Code: R51 - Nonintractable episodic headache, unspecified headache type Hao Navarrete DO May 08, 2016 10:11
--- NOTE | 2016-05-08 13:47 | HHI.NPPN ---
Subjective Interval History No more vomiting. She feels better. sodium is better. (aPm Cardenas) Objective Data Data 05/07/16 05/08/16 19:00 07:00 Intake Total 360 ml Balance 360 ml Intake Oral 360 ml # Voids 5 # Bowel Movements 0 Vital Signs Date Time Temp Pulse Resp B/P Pulse Ox O2 Delivery O2 Flow Rate FiO2 05/08/16 08:00 97.1 50 18 121/57 96 05/08/16 04:00 97.2 56 20 97/52 97 05/08/16 00:00 97.0 64 20 106/52 96 05/07/16 20:00 96.3 55 18 120/69 96 05/07/16 17:50 96.4 58 22 156/68 97 05/07/16 15:28 57 18 109/59 97 Room Air (Pam Cardenas) -: 05/07/16 1145 05/08/16 0600 Imaging Last Impressions Head CT 05/07/16 0000 Signed Impressions: Service Date/Time: April 11:57 - CONCLUSION: No acute disease. Zak Arora MD FACR Brain MRI 05/07/16 0000 Signed Impressions: Service Date/Time: April 17:04 - CONCLUSION: Normal MRI of the brain. Jai Villasenor MD (Pam Cardenas) Physical Exam General Appearance: Well Developed, Well Nourished, No Acute Distress, Comfortable ( Pam Cardenas) Neck Neck Exam: Neck Supple, Trachea Midline (Pam Cardenas) Pulmonary Resp Exam: Clear Bilaterally, Breath Sounds Equal, No Distress (Pam Cardenas) Cardiology CV Exam: Regular, Normal Sinus Rhythm, Good Perfusion (Pam Cardenas) Gastrointestinal/Abdomen GI Exam: Soft, Non-Tender, Bowel Sounds Present, Positive Bowel Movement ( Pam Cardenas) Musculoskeletal MS Exam: Joints Intact, Normal Gait, Normal Tone, Good Strength (Pam Cardenas) Integumentary Skin Exam: Clear, Warm, Dry, Intact (Pam Cardenas) Extremeties Extremities Exam: No Edema, Pedal Pulses Palpable (Pam Cardenas) Neurologic Neuro Exam: Alert, Awake, Oriented, Speech Clear, Moving All Extremities ( Pam Cardenas) Psychiatric Psych Exam: Appropriate Responses (Pam Cardenas) Assessment/Plan Discussed Condition With: Patient Electrolyte Assessment: Hyponatremia Problem List: (1) Hyponatremia Plan: may have mild chronic hyponatremia, etiology could be SIADH. worsened by increased water intake for days prior to arrival fluid restriction alone has improved her serum sodium, now 125 urine is appropriately dilute, low osmolality. urine sodium was not done, uric acid is normal continue oral fluid restriction. Monitor. She has no neurological symptoms , likely can be discharged tomorrow (2) COPD (chronic obstructive pulmonary disease) Plan: not requiring oxygen therapy, lungs clear (3) Essential (primary) hypertension Plan: BP stable continue home medications (Pam Cardenas) Problem List: (1) Hyponatremia Plan: may have mild chronic hyponatremia, etiology could be SIADH. worsened by increased water intake for days prior to arrival fluid restriction alone has improved her serum sodium, now 125 urine sodium was not done, uric acid is normal continue oral fluid restriction. Monitor. She has no neurological symptoms , likely can be discharged tomorrow (2) COPD (chronic obstructive pulmonary disease) Plan: not requiring oxygen therapy, lungs clear (3) Essential (primary) hypertension Plan: BP stable continue home medications Plan patient was seen and examined. Serum Na has improved. Worsening of hyponatremia likely was due to excessive water intake in the presence of underlying SIADH and chronic hyponatremia. Patient was advised to follow fluid restriction. ( Enrique Bain MD) Pam Cardenas May 08, 2016 13:47 Enrique Bain MD May 08, 2016 17:38
--- NOTE | 2016-05-08 14:54 | EKG ---
Date Performed: 05/07/2016 Time Performed: 10:25:01 PTAGE: 65 years EKG: SINUS BRADYCARDIA BORDERLINE ECG NO PREVIOUS TRACING DOCTOR: Rebekah Scott Interpretating Date/Time 05/08/2016 14:52:01
[2016-05-08 15:56] VITALS: BP 114/61; PULSE 63; RESP 18; TEMP 97.5; O2SAT 96
[2016-05-08] MEDS: ALPRAZolam 0.5 MG TAB PO PRN (17:59)
[2016-05-08] MEDS: ACETAMIN 325 MG/BUTALBITAL 50 MG/CAFFEINE 40 MG TAB PO PRN (18:00)
[2016-05-08 18:03] LABS: BICARBONATE 29.3 MEQ/L (21.0-32.0); POTASSIUM 4.2 MEQ/L (3.5-5.1)
[2016-05-08 20:00] VITALS: BP 117/57; PULSE 65; RESP 22; TEMP 97.3; O2SAT 93
[2016-05-08] MEDS ORDERED: ATENOLOL 25 MG TAB PO SCH (21:00)
[2016-05-08] MEDS: LORATADINE 10 MG TAB PO SCH (23:44)
[2016-05-09] VITALS: BP 117/62; PULSE 62; RESP 24; TEMP 97; O2SAT 93
[2016-05-09 02:54] VITALS: PULSE 62
[2016-05-09 04:00] VITALS: BP 124/60; PULSE 56; RESP 18; TEMP 96.8; O2SAT 56
[2016-05-09 07:51] LABS: BICARBONATE 30.5 MEQ/L (21.0-32.0); MAGNESIUM 1.6 MG/DL (1.5-2.5); POTASSIUM 3.8 MEQ/L (3.5-5.1)
[2016-05-09 08:02] VITALS: PULSE 76
[2016-05-09] MEDS: BUDESONIDE-FORMOTEROL 80/4.5 MCG INHALER INH SCH (08:16)
[2016-05-09] MEDS: LISINOPRIL 20 MG TAB PO SCH (08:16)
[2016-05-09] MEDS: MAGNESIUM OXIDE 400 MG TAB PO SCH (08:16)
[2016-05-09] MEDS: HYDROXYCHLOROQUINE SULFATE 200 MG TAB PO SCH (08:16)
[2016-05-09] MEDS: SODIUM CHLORIDE 0.9% FLUSH 5 ML FLUSH FLUSH SCH (08:17)
[2016-05-09 08:23] VITALS: BP 117/59; PULSE 56; RESP 18; TEMP 97.9; O2SAT 96
[2016-05-09] MEDS ORDERED: MAGNESIUM SULFATE 1 GM PREMIX 100 ML IV ONE (08:30)
[2016-05-09] MEDS ORDERED: BUTATAB6 PO (08:49)
[2016-05-09] MEDS ORDERED: ATEN25TA PO (08:49)
--- NOTE | 2016-05-09 08:57 | HHI.PR ---
Subjective Remarks The patient was feeling well this morning and was anxious to go home. She said her blurry vision has resolved. She has been having formed bowel movements. She is tolerating more of a diet. She had no acute complaints at this time. Objective Vitals Vital Signs Date Time Temp Pulse Resp B/P Pulse Ox O2 Delivery O2 Flow Rate FiO2 05/09/16 08:23 97.9 56 18 117/59 96 05/09/16 08:02 76 05/09/16 04:00 96.8 56 18 124/60 56 05/09/16 02:54 62 05/09/16 00:00 97.0 62 24 117/62 93 05/08/16 20:00 97.3 65 22 117/57 93 05/08/16 15:56 97.5 63 18 114/61 96 I/O 05/08/16 05/08/16 05/08/16 05/09/16 05/09/16 05/09/16 07:00 15:00 23:00 07:00 15:00 23:00 Intake Total 120 ml 620 ml Balance 120 ml 620 ml Intake Oral 120 ml 620 ml # Voids 3 5 3 # Bowel Movements 0 2 1 Result Diagram: 05/07/16 1145 05/09/16 0659 Imaging Last Impressions Head CT 05/07/16 0000 Signed Impressions: Service Date/Time: April 11:57 - CONCLUSION: No acute disease. Zak Arora MD FACR Brain MRI 05/07/16 0000 Signed Impressions: Service Date/Time: April 17:04 - CONCLUSION: Normal MRI of the brain. Jai Villasenor MD Objective Remarks GENERAL: This is a well-nourished, well-developed patient, in no apparent distress. SKIN: No rashes, ecchymoses or lesions. Cool and dry. HEAD: Atraumatic. Normocephalic. No temporal or scalp tenderness. EYES: Pupils equal round and reactive. Extraocular motions intact. No scleral icterus. No injection or drainage. ENT: Nose without bleeding, purulent drainage or septal hematoma. Throat without erythema, tonsillar hypertrophy or exudate. Uvula midline. Airway patent. NECK: Trachea midline. No JVD or lymphadenopathy. Supple, nontender, no meningeal signs. CARDIOVASCULAR: Regular rate and rhythm without murmurs, gallops, or rubs. RESPIRATORY: Clear to auscultation. Breath sounds equal bilaterally. No wheezes , rales, or rhonchi. GASTROINTESTINAL: Abdomen soft, non-tender, nondistended. No hepato-splenomegaly , or palpable masses. No guarding. MUSCULOSKELETAL: Extremities without clubbing, cyanosis, or edema. No joint tenderness, effusion, or edema noted. NEUROLOGICAL: Awake and alert. Cranial nerves II through XII intact. Motor and sensory grossly within normal limits. Five out of 5 muscle strength in all muscle groups. Normal speech. PSYCH: Mood and affect appropriate. Procedures None. Medications and IVs Current Medications Medications (Trade) Dose Ordered Sig/Tyrone Route Start Time Stop Time Status Last Admin (Xanax) 0.5 mg BID PRN PO 05/07/16 13:15 05/08/16 17:59 (Symbicort 80-4.5 Mcg Inh) 2 puff Q12HR INH 05/07/16 21:00 05/09/16 08:16 (Plaquenil) 400 mg DAILY PO 05/08/16 09:00 05/09/16 08:16 (Prinivil) 20 mg DAILY PO 05/08/16 09:00 05/09/16 08:16 (Claritin) 10 mg HS PO 05/07/16 21:00 05/08/16 23:44 (Mag-Ox) 400 mg DAILY PO 05/08/16 09:00 05/09/16 08:16 (NS Flush) 2 ml UNSCH PRN FLUSH 05/07/16 13:15 (NS Flush) 2 ml BID FLUSH 05/07/16 21:00 05/09/16 08:17 (Tylenol) 650 mg Q4H PRN PO 05/07/16 13:15 (Zofran Inj) 4 mg Q6H PRN IVP 05/07/16 13:15 (Senokot) 17.2 mg Q12H PRN PO 05/07/16 13:15 (Ambien) 5 mg HS PRN PO 05/07/16 13:15 (Tylenol) 650 mg Q6H PRN PO 05/07/16 13:15 (Roxicodone) 10 mg Q4H PRN PO 05/07/16 13:15 05/07/16 23:52 (Roxicodone) 5 mg Q4H PRN PO 05/07/16 13:15 (Narcan Inj) 0.4 mg UNSCH PRN IV 05/07/16 13:15 (Fioricet 325-50-40) 1 tab Q6H PRN PO 05/07/16 17:00 05/08/16 18:00 Atenolol 25 mg 25 mg HS PO 05/08/16 21:00 05/08/16 23:47 (Magnesium Sulfate 1 Gm Premix) 100 ml @ 100 mls/hr ONCE ONCE IV 05/09/16 08:30 05/09/16 09:29 A/P Problem List: (1) Hyponatremia ICD Code: E87.1 Status: Acute (2) Cephalgia ICD Code: R51 Status: Acute (3) Appetite loss ICD Code: R63.0 Status: Acute Assessment and Plan Acute on chronic hyponatremia The patient was hyponatremic on the recent admission but her values were lower on presentation with a sodium of 118. She does not have much of an appetite and has been drinking a lot of water and juices. Serum osmolarity is 243, urine osmolarity is 139. She received IV fluids in the emergency department. CT of the head was unremarkable. Nephrology consult appreciated. - follow BMP. Will ensure gradual increase in sodium level. Improved to 126 . - continue fluid restriction. - follow up with nephrology as an outpt. - dietary consult for malnutrition appreciated. - repeat BMP in 3-5 days. Headache/ Blurry vision The patient has had a chronic headache. She has also had blurry vision. The blurry vision may be secondary to recently diagnosed cataracts. MRI brain normal. Blurry vision resolved. - Fioricet as needed. - outpt follow up with ophtho. Bradycardia The patient is on atenolol. EKG with sinus bradycardia. - decrease atenolol to 25 mg HS. - the pt will follow up with her PCP. HTN Blood pressure is well controlled at this time. - continue home meds. Atenolol dose reduced as above. PPx: SCDs. Discharge Planning D/c home. Problem Qualifiers (1) Cephalgia: Qualified Code: R51 - Nonintractable episodic headache, unspecified headache type Hao Navarrete DO May 09, 2016 08:57
--- NOTE | 2016-06-03 17:00 | HHI.DCPOC ---
Discharge Care Plan Diagnosis: (1) Hyponatremia (2) Cephalgia (3) Bradycardia Goals to Promote Your Health * To prevent worsening of your condition and complications * To maintain your health at the optimal level Directions to Meet Your Goals Take your medications as prescribed Follow your dietary instruction Follow activity as directed Keep your appointments as scheduled Take your immunizations and boosters as scheduled If your symptoms worsen call your PCP, if no PCP go to Urgent Care Center or Emergency Room Smoking is Dangerous to Your Health. Avoid second hand smoke Call the 24-hour hour crisis hotline for domestic abuse at Hao Navarrete DO Jun 03, 2016 17:00
== END 2016-05-09 10:31 | disposition home or self-care (01) | DRG 641 ==
LOC: NEPA 11:12 → NEDA 13:02 → N05A 17:39
PROVIDERS: ADMIT Hospitalist; ATTEND Hospitalist
DX: E87.1 Hypo-osmolality and hyponatremia (principal); J44.9 Chronic obstructive pulmonary disease, unspecified; R63.0 Anorexia; E87.5 Hyperkalemia; I10 Essential (primary) hypertension; M06.9 Rheumatoid arthritis, unspecified; M81.0 Age-related osteoporosis without current pathological fracture; R51 Headache; M19.90 Unspecified osteoarthritis, unspecified site; H26.9 Unspecified cataract; R00.1 Bradycardia, unspecified; F43.10 Post-traumatic stress disorder, unspecified; F12.90 Cannabis use, unspecified, uncomplicated; Z68.21 Body mass index [BMI] 21.0-21.9, adult; Z87.891 Personal history of nicotine dependence; Z88.0 Allergy status to penicillin
CPT/HCPCS: 70450; 70553; 80048; 81001; 82948; 83735; 83930; 83935; 84100; 84550; 85025; 93005; A9579; J3475; J7030